=== PATIENT | male | born 1955 | race Caucasian/White ===

== ENCOUNTER 2016-12-05 18:02 | Emergency (ER) | payer OTHER ==
[2016-12-05 18:47] VITALS: BP 164/85; PULSE 56; RESP 18; TEMP 97.5
--- NOTE | 2016-12-05 18:49 | ED ---
Wound/Laceration HPI - General Chief Complaint: Wound/Laceration Stated Complaint: LACERATION THUMB, LEFT HAND Time Seen by Provider: 12/05/16 18:39 Source: patient, RN notes reviewed Mode of arrival: ambulatory Limitations: no limitations - History of Present Illness Initial Comments: Patient is a 61-year-old male with chief complaint of a laceration over his left thumb. Patient reports occurred while he was cutting cauliflower. Patient states that the laceration will not stop bleeding. Patient states that he is right-handed. He denies any other injuries from the cut. Patient states he is up-to-date on tetanus shot. Patient denies any recent fever, chills, shortness of breath, chest pain, back pain, abdominal pain, nausea vomiting, numbness or tingling, dysuria or hematuria, constipation or diarrhea, headaches or visual changes, or any other current symptoms - Related Data Home Medications Medication Instructions Recorded Confirmed Cetirizine HCl 10 mg PO DAILY 08/26/14 12/05/16 Cholecalciferol (Vitamin D3) 10,000 unit PO DAILY 08/26/14 12/05/16 [Vitamin D3] Garlic 1 each PO DAILY 08/26/14 12/05/16 Lisinopril-Hctz 10-12.5 mg 1 tab PO HS 08/26/14 12/05/16 [Zestoretic 10-12.5] [place]-3 Fatty Acids/Fish Oil [Fish 1 tab PO DAILY 08/26/14 12/05/16 Oil 1,000 mg Softgel] Simvastatin [Zocor] 20 mg PO HS 08/26/14 12/05/16 Pantoprazole [Protonix] 40 mg PO DAILY 12/05/16 12/05/16 Allergies Allergy/AdvReac Type Severity Reaction Status Date / Time acetaminophen [From Tavist] Allergy Confusion Verified 12/05/16 18:39 clemastine fumarate Allergy Confusion Verified 12/05/16 18:39 [From Tavist] diphenhydramine HCl Allergy Swelling Verified 12/05/16 18:39 [From Benadryl] hydrocodone Allergy Dyspnea Verified 12/05/16 18:39 pseudoephedrine HCl Allergy Confusion Verified 12/05/16 18:39 [From Tavist] Review of Systems ROS Statement: Those systems with pertinent positive or pertinent negative responses have been documented in the HPI. ROS Other: All systems not noted in ROS Statement are negative. Past Medical History Past Medical History: Atrial Fibrillation, Hypertension History of Any Multi-Drug Resistant Organisms: None Reported Past Surgical History: Cholecystectomy, Orthopedic Surgery Past Psychological History: No Psychological Hx Reported Smoking Status: Never smoker Past Alcohol Use History: None Reported Past Drug Use History: None Reported General Exam - General Exam Comments Initial Comments: Pleasant 61-year-old male. No distress. Limitations: no limitations General appearance: alert, in no apparent distress Head exam: Present: atraumatic, normocephalic, normal inspection Eye exam: Present: normal appearance, PERRL, EOMI. Absent: scleral icterus, conjunctival injection, periorbital swelling ENT exam: Present: normal exam, mucous membranes moist Neck exam: Present: normal inspection. Absent: tenderness, meningismus, lymphadenopathy Respiratory exam: Present: normal lung sounds bilaterally. Absent: respiratory distress, wheezes, rales, rhonchi, stridor Cardiovascular Exam: Present: regular rate, normal rhythm, normal heart sounds. Absent: systolic murmur, diastolic murmur, rubs, gallop, clicks GI/Abdominal exam: Present: soft, normal bowel sounds. Absent: distended, tenderness, guarding, rebound, rigid Extremities exam: Present: normal inspection, full ROM, normal capillary refill. Absent: tenderness, pedal edema, joint swelling, calf tenderness Left Hand Wrist exam: Present: normal inspection, full ROM, laceration (2 cm laceration over the left thumb.) Back exam: Present: normal inspection Neurological exam: Present: alert, oriented X3, CN II-XII intact Psychiatric exam: Present: normal affect, normal mood Skin exam: Present: warm, dry, intact, normal color. Absent: rash Course Vital Signs 12/05/16 18:37 Temperature 97.5 F L Pulse Rate 56 L Respiratory 18 Rate Blood Pressure 164/85 O2 Sat by Pulse 95 Oximetry Procedures - Laceration Laceration #1 Consent Obtained: verbal consent Indication: laceration Site: hand (left thumb) Size (cm): 2 Description: linear Depth: simple, single layer Anesthetic Used: benzocaine 0.25% Anesthesia Technique: local infiltration Amount (mls): 2 Pre-repair: wound explored, irrigated extensively Type of Sutures: nylon Size of Sutures: 6-0 Number of Sutures: 2 Technique: simple, interrupted Patient Tolerated Procedure: well, no complications Medical Decision Making - Medical Decision Making Patient is a 61 year old male with 2cm thumb laceration after cutting it on a kitchen knife. Patient wound was cleaned, and has full range of motion, superficial laceration and bleeding controlled. PAtient wound approximated with 2 sutures. Patient understands treatment plan and return parameter including infection. PAtient understands to have sutures removed. Disposition Clinical Impression: Thumb laceration Disposition: HOME SELF-CARE Condition: Good Instructions: Care For Your Stitches (ED), Laceration (ED) Additional Instructions: Please return to the emergency room in 8-10 days to have sutures removed. Please leave wound covered for the first 24-48 hours and then leave open to air after that time. Please use clean soap and water to clean the suture area to prevent scabbing over the top of your sutures. Please watch for any signs of infection which may include but not limited to increased pain, swelling, redness , fever or chills. Please return to the emergency room if any signs of infection do occur. Please return to the emergency room for any other concerns or complications. Referrals: El Jennings MD [Primary Care Provider] - 1-2 days Time of Disposition: 19:43
== END 2016-12-05 19:50 | disposition home or self-care (01) ==
LOC: EC 18:02
DX: S61.012A Laceration without foreign body of left thumb without damage to nail, initial encounter (principal); I48.91 Unspecified atrial fibrillation; I10 Essential (primary) hypertension; Z79.899 Other long term (current) drug therapy; Z88.8 Allergy status to other drugs, medicaments and biological substances; W26.0XXA Contact with knife, initial encounter; Y92.009 Unspecified place in unspecified non-institutional (private) residence as the place of occurrence of the external cause
CPT/HCPCS: 12001; 99282

== ENCOUNTER 2019-03-25 08:08 | Emergency (ER) | payer OTHER ==
[2019-03-25 08:15] VITALS: RESP 18
[2019-03-25 10:26] LABS: Basophils % (A) 1 %; Eosinophils # (A) 0.1 k/uL (0-0.7); Eosinophils % (A) 2 %; HCT 45.1 % (39.0-53.0); HGB 15.3 gm/dL (13.0-17.5); Lymphocytes # (A) 1.8 k/uL (1.0-4.8); Lymphocytes % (A) 24 %; MCV 82.2 fL (80.0-100.0); Mean Platelet Volume 7.2; Monocytes # (A) 0.4 k/uL (0-1.0); Monocytes % (A) 5 %; Neutrophils # (A) 5.2 k/uL (1.3-7.7); Neutrophils % (A) 67 %; Platelet Count 187 k/uL (150-450); RBC 5.48 m/uL (4.30-5.90); RDW 13.5 % (11.5-15.5); WBC 7.7 k/uL (3.8-10.6)
--- NOTE | 2019-03-25 10:42 | XR ---
EXAMINATION TYPE: XR chest 2V DATE OF EXAM: 03/25/2019 COMPARISON: 12/30/2014 TECHNIQUE: PA and lateral views submitted. HISTORY: Cardiac dysrhythmia FINDINGS: The lungs are clear and there is no pneumothorax, pleural effusion, or focal pneumonia. Atrophic ch anna of the vertebral column. No overt failure. IMPRESSION: 1. No acute process.
[2019-03-25 10:44] LABS: ALT 35 U/L (21-72); AST 28 U/L (17-59); African American GFR (CKD) >90 (>60 ml/min/1.73 sqM); Albumin 4.2 g/dL (3.5-5.0); Alkaline Phosphatase 42 U/L (38-126); Anion Gap 10 mmol/L; Blood Urea Nitrogen 16 mg/dL (9-20); Calcium 9.6 mg/dL (8.4-10.2); Carbon Dioxide 27 mmol/L (22-30); Chloride 105 mmol/L (98-107); Glucose 108 mg/dL (74-99); Potassium 3.9 mmol/L (3.5-5.1); Sodium 142 mmol/L (137-145); Total Bilirubin 0.6 mg/dL (0.2-1.3); Total Protein 6.9 g/dL (6.3-8.2)
[2019-03-25] MEDS ORDERED: SODIUM CHLORIDE 0.9% 1,000 ML IV STA (10:46)
--- NOTE | 2019-03-25 10:48 | ED ---
General Adult HPI - General Chief complaint: Arrhythmia/Palpitations Stated complaint: active A-Fib Time Seen by Provider: 03/25/19 08:18 Source: patient Mode of arrival: ambulatory Limitations: no limitations - History of Present Illness Initial comments: Dictation was produced using [employer] dictation software. please excuse any grammatical, word or spelling errors. Chief Complaint: 63-year-old male with past medical history of A. fib, GERD and dyslipidemia presents with palpitations. History of Present Illness: Sodium 3-year-old male. He was at home is his usual state of health. Patient states that he did feel episode palpitations. Patient does have an apple watched that monitors his heart rate. He did receive in the left from his said he had episode of A. fib. Patient reports that several years ago he was told he had atrial fibrillation. He did state cardiac workup. He is not on any blood thinner medications or any rate controlling medications at this point. He reports that he's been sweating more than usual because of the recent weather changes. Patient states that his episode of short-lived lasting for only seconds.. When he is not having palpitations patient feels normal. He has no complaints. He does not for sure of breath or have any chest pain. The ROS documented in this emergency department record has been reviewed and confirmed by me. Those systems with pertinent positive or negative responses have been documented in the HPI. All other systems are other negative and/or noncontributory. PHYSICAL EXAM: General Impression: Alert and oriented x3, not in acute distress HEENT: Normocephalic atraumatic, extra-ocular movements intact, pupils equal and reactive to light bilaterally, mucous membranes moist. Cardiovascular: Heart regular rate and rhythm, S1&S2 audible, no murmurs, rubs or gallops Chest: Lungs clear to auscultation bilaterally, no rhonchi, no wheeze, no rales Abdomen: Bowel sounds present, abdomen soft, non-tender, non-distended, no organomegaly Musculoskeletal: Pulses present and equal in all extremities, no peripheral edema Motor: no focal deficits noted Neurological: CN II-XII grossly intact, no focal motor or sensory deficits noted Skin: Intact with no visualized rashes Psych: Normal affect and mood ED course:-year-old male presents with clinical presentation consistent with palpitations. EKG performed in the ER showed normal sinus rhythm. With a rate of 73. [place] was placed on the monitor and had a rate of 106. EKG was performed at that time showing atrial fibrillation. Signs upon arrival are within acceptable limits. Patient wears a smart watch that shows his heart rate over the last 72 hours. Patient has not had any episodes of tachycardia about 105 and most of his heart rate is less than 80. She does not any heart rate controlling medications at this time. Patient had one sharp Rx's only A. fib here in emergency department and was caught on EKG. He is given fluids and kept on the monitor with no A. fib. At this point I do not believe patient is a candidate for antiplatelet coagulation medications given that his risk of clot formation is very small. He has not had a tenuous A. fib for more than 48 hours. State he has had multiple minute long episodes occurring maybe once a day as seen on his smart watch. Patient's well-appearing at this time. Laboratory evaluation obtained showing no acute processes. Chest x-rays negative. Patient started on NV metoprolol. He is given prescription. Patient given referral to cardiology. EKG interpretation: Ventricular rate 106, A. fib, QRS 104, QTc 502. No NV prolongation, no QTC prolongation, no ST or T-wave changes noted. . Overall, this EKG is unremarkable - Related Data Home Medications Medication Instructions Recorded Confirmed Cetirizine HCl 10 mg PO HS 08/26/14 03/25/19 Cholecalciferol (Vitamin D3) 10,000 unit PO HS 08/26/14 03/25/19 [Vitamin D3] Garlic 1 tab PO HS 08/26/14 03/25/19 Lisinopril-Hctz 10-12.5 mg 1 tab PO HS 08/26/14 03/25/19 [Zestoretic 10-12.5] [place]-3 Fatty Acids/Fish Oil [Fish 1 tab PO HS 08/26/14 03/25/19 Oil 1,000 mg Softgel] Simvastatin [Zocor] 20 mg PO HS 08/26/14 03/25/19 Pantoprazole [Protonix] 40 mg PO HS 12/05/16 03/25/19 Fluticasone Nasal [place] [Flonase 1 spray EA NOSTRIL HS PRN 03/25/19 03/25/19 Nasal [place]] Multivitamins, Thera [Multivitamin 1 tab PO HS 03/25/19 03/25/19 (formulary)] Previous Rx's Medication Instructions Recorded Metoprolol Succinate (ER) [Toprol 25 mg PO DAILY #12 tab 03/25/19 XL] Allergies Allergy/AdvReac Type Severity Reaction Status Date / Time diphenhydramine HCl Allergy Swelling Verified 03/25/19 08:22 [From Benadryl] hydrocodone Allergy Dyspnea Verified 03/25/19 08:22 acetaminophen [From Tavist] AdvReac Confusion Verified 03/25/19 08:22 clemastine fumarate AdvReac Confusion Verified 03/25/19 08:22 [From Tavist] pseudoephedrine HCl AdvReac Confusion Verified 03/25/19 08:22 [From Tavist] Review of Systems ROS Statement: Those systems with pertinent positive or pertinent negative responses have been documented in the HPI. ROS Other: All systems not noted in ROS Statement are negative. Past Medical History Past Medical History: Atrial Fibrillation, GERD/Reflux, Hyperlipidemia, Hyperten namrata History of Any Multi-Drug Resistant Organisms: None Reported Past Surgical History: Cholecystectomy, Orthopedic Surgery Past Psychological History: No Psychological Hx Reported Smoking Status: Never smoker Past Alcohol Use History: None Reported Past Drug Use History: None Reported General Exam Limitations: no limitations Course Vital Signs 03/25/19 03/25/19 08:11 10:46 Temperature 97.9 F Pulse Rate 92 70 Respiratory 18 18 Rate Blood Pressure 164/100 138/84 O2 Sat by Pulse 97 95 Oximetry Medical Decision Making - Lab Data Result diagrams: 03/25/19 10:00 03/25/19 10:00 Lab Results 03/25/19 03/25/19 03/25/19 Range/Units 10:00 10:00 10:00 WBC 7.7 (3.8-10.6) k/uL RBC 5.48 (4.30-5.90) m/uL Hgb 15.3 (13.0-17.5) gm/dL Hct 45.1 (39.0-53.0) % MCV 82.2 (80.0-100.0) fL MCH 28.0 (25.0-35.0) pg MCHC 34.0 (31.0-37.0) g/dL RDW 13.5 (11.5-15.5) % Plt Count 187 (150-450) k/uL Neutrophils % 67 % Lymphocytes % 24 % Monocytes % 5 % Eosinophils % 2 % Basophils % 1 % Neutrophils # 5.2 (1.3-7.7) k/uL Lymphocytes # 1.8 (1.0-4.8) k/uL Monocytes # 0.4 (0-1.0) k/uL Eosinophils # 0.1 (0-0.7) k/uL Basophils # 0.0 (0-0.2) k/uL PT 9.9 (9.0-12.0) sec INR 0.9 (<1.2) APTT 21.3 L (22.0-30.0) sec Sodium 142 (137-145) mmol/L Potassium 3.9 (3.5-5.1) mmol/L Chloride 105 (98-107) mmol/L Carbon Dioxide 27 (22-30) mmol/L Anion Gap 10 mmol/L BUN 16 (9-20) mg/dL Creatinine 0.95 (0.66-1.25) mg/dL Est GFR (CKD-EPI)AfAm >90 (>60 ml/min/1.73 sqM) Est GFR (CKD-EPI)NonAf 87 (>60 ml/min/1.73 sqM) Glucose 108 H (74-99) mg/dL Calcium 9.6 (8.4-10.2) mg/dL Magnesium 2.0 (1.6-2.3) mg/dL Total Bilirubin 0.6 (0.2-1.3) mg/dL AST 28 (17-59) U/L ALT 35 (21-72) U/L Alkaline Phosphatase 42 (38-126) U/L Troponin I (0.000-0.034) ng/mL Total Protein 6.9 (6.3-8.2) g/dL Albumin 4.2 (3.5-5.0) g/dL TSH 1.920 (0.465-4.680) mIU/L 03/25/19 Range/Units 10:00 WBC (3.8-10.6) k/uL RBC (4.30-5.90) m/uL Hgb (13.0-17.5) gm/dL Hct (39.0-53.0) % MCV (80.0-100.0) fL MCH (25.0-35.0) pg MCHC (31.0-37.0) g/dL RDW (11.5-15.5) % Plt Count (150-450) k/uL Neutrophils % % Lymphocytes % % Monocytes % % Eosinophils % % Basophils % % Neutrophils # (1.3-7.7) k/uL Lymphocytes # (1.0-4.8) k/uL Monocytes # (0-1.0) k/uL Eosinophils # (0-0.7) k/uL Basophils # (0-0.2) k/uL PT (9.0-12.0) sec INR (<1.2) APTT (22.0-30.0) sec Sodium (137-145) mmol/L Potassium (3.5-5.1) mmol/L Chloride (98-107) mmol/L Carbon Dioxide (22-30) mmol/L Anion Gap mmol/L BUN (9-20) mg/dL Creatinine (0.66-1.25) mg/dL Est GFR (CKD-EPI)AfAm (>60 ml/min/1.73 sqM) Est GFR (CKD-EPI)NonAf (>60 ml/min/1.73 sqM) Glucose (74-99) mg/dL Calcium (8.4-10.2) mg/dL Magnesium (1.6-2.3) mg/dL Total Bilirubin (0.2-1.3) mg/dL AST (17-59) U/L ALT (21-72) U/L Alkaline Phosphatase (38-126) U/L Troponin I 0.023 (0.000-0.034) ng/mL Total Protein (6.3-8.2) g/dL Albumin (3.5-5.0) g/dL TSH (0.465-4.680) mIU/L Disposition Clinical Impression: Paroxysmal atrial fibrillation Disposition: HOME SELF-CARE Condition: Good Instructions (If sedation given, give patient instructions): Heart Palpitations (ED) Prescriptions: Metoprolol Succinate (ER) [Toprol XL] 25 mg PO DAILY #12 tab Is patient prescribed a controlled substance at d/c from ED?: No Referrals: El Jennings MD [Primary Care Provider] - 1-2 days Demetrius Meadows MD [STAFF PHYSICIAN] - 1-2 days Time of Disposition: 12:14
[2019-03-25 11:21] LABS: INR 0.9 (<1.2); Prothrombin Time 9.9 sec (9.0-12.0)
[2019-03-25 11:25] LABS: Partial Thromboplastin Time 21.3 sec (22.0-30.0)
[2019-03-25] MEDS ORDERED: METOPROLOL SUCCINATE (ER) 25 MG TAB.ER.24H PO STA (12:11)
[2019-03-25 12:32] VITALS: BP 128/70; PULSE 78; TEMP 98
== END 2019-03-25 12:30 | disposition home or self-care (01) ==
LOC: EC 08:08
DX: I48.0 Paroxysmal atrial fibrillation (principal); K21.9 Gastro-esophageal reflux disease without esophagitis; E78.5 Hyperlipidemia, unspecified; I10 Essential (primary) hypertension; Z79.899 Other long term (current) drug therapy; Z88.5 Allergy status to narcotic agent; Z88.8 Allergy status to other drugs, medicaments and biological substances
CPT/HCPCS: 36415; 71046; 80053; 83735; 84443; 84484; 85025; 85610; 85730; 93005; 96360; 99285

== ENCOUNTER 2019-04-02 06:28 | Day surgery (SDC) | payer OTHER ==
[2019-03-29 08:51] VITALS: BMI 40.6
[2019-04-02] MEDS ORDERED: ATORVASTATIN 80 MG TAB PO STA (06:40)
[2019-04-02] MEDS ORDERED: ALPRAZolam 0.5 MG TAB PO PRN (06:40)
[2019-04-02] MEDS ORDERED: ALPRAZolam 0.25 MG TAB PO PRN (06:40)
[2019-04-02] MEDS ORDERED: NITROGLYCERIN SL TABS 0.4 MG TAB SUBLINGUAL PRN (06:40)
[2019-04-02] MEDS ORDERED: ASPIRIN 325 MG TAB PO STA (06:40)
[2019-04-02] MEDS ORDERED: SODIUM CHLORIDE 0.9% 1,000 ML in EMPTY BAG 1 BAG IV ONE (06:40)
[2019-04-02 07:14] VITALS: PULSE 62; RESP 20; TEMP 98
[2019-04-02] MEDS ORDERED: LIDOCAINE 1% INJ 10MG/ML (20 ML MDV) ONE (07:32)
[2019-04-02] MEDS ORDERED: HEPARIN SODIUM 1,000 UN/ML (10ML VL) ONE (07:32)
[2019-04-02] MEDS ORDERED: VERAPAMIL 2.5 MG/ML 2 ML AMP ONE (07:32)
[2019-04-02] MEDS ORDERED: MIDAZOLAM (PF) 2 MG/2 ML VIAL IVP ONE (07:42)
[2019-04-02] MEDS ORDERED: LIDOCAINE 1% INJ 10MG/ML (20 ML MDV) SQ ONE (07:45)
[2019-04-02] MEDS ORDERED: HEPARIN SODIUM 1,000 UN/ML (10ML VL) IV ONE (07:48)
[2019-04-02] MEDS ORDERED: IOPAMIDOL-370 125ML BTL INJ ONE (07:53)
[2019-04-02] MEDS ORDERED: RX INFO: IV CONTRAST WAS GIVEN 1 EACH MISC MISCELLANE PRN (08:02)
[2019-04-02] MEDS ORDERED: SODIUM CHLORIDE 0.9% 1,000 ML IV SCH (08:15)
[2019-04-02] MEDS ORDERED: ACETAMINOPHEN TAB 325 MG TAB PO STA (09:28)
--- NOTE | 2019-04-02 10:03 | CC ---
CARDIAC CATHETERIZATION REPORT DATE OF SERVICE: 04/02/2019 PERFORMING PHYSICIAN: Demetrius Meadows MD, [facility]. PROCEDURE PERFORMED: 1. Selective right and left coronary angiogram. 2. Left heart catheterization. INDICATION: This is a very pleasant 63-year-old gentleman with hypertension as well as dyslipidemia, as well as paroxysmal atrial fibrillation, who sees Dr. Michel in the office as an outpatient who was experiencing symptoms of feeling weak and tired, as well as intermittent episodes of diaphoresis with exertion. He underwent a cardiac workup including EKG showing ST changes concerning for severe underlying coronary artery disease as well as a 24 hour Holter monitor which revealed ventricular arrhythmia. Because of that, a heart catheterization was advised to rule out severe underlying coronary artery disease. APPROACH: Right radial artery. COMPLICATION: None. LEVEL OF SEDATION: Moderate with sedation length of 13 minutes. PROCEDURE DESCRIPTION: After obtaining an informed consent, the patient was brought to the cardiac cleaning laborer. The right radial artery was cannulated using micropuncture technique, the micropuncture wire passed easily, then I placed a 5-[place] sheath in the right radial artery. After that, I gave the patient 2 mg of verapamil IA and 10,000 units of heparin IV. I did selective right and left coronary angiogram using JR4 and JL3.5 catheters. Left heart catheterization was performed using 5-Icelandic pigtail catheter. The procedure was completed without any complication. SELECTIVE CORONARY ANGIOGRAM: 1. The right coronary artery is a large caliber vessel. It is a dominant vessel. The right coronary artery has mild disease only. 2. The left main is angiographically normal. It bifurcates into left circumflex and left anterior descending artery. 3. The left circumflex is a large caliber vessel. The left circumflex appeared to have mild disease only in the midportion. It gives rise into multiple obtuse marginal branches, they appear to be angiographically normal. Distally, it gives a PDA branch as well which appeared to be angiographically normal. 4. The LAD, the proximal LAD has mild disease only. The mid LAD has mild disease only and gives rise into a large diagonal branch which seems to be angiographically normal. In the proximal portion, it gives rise into the first diagonal branch which appeared to be angiographically normal. HEMODYNAMICS: The left ventricular end-diastolic pressure was about 10 mmHg with mild gradient across the aortic valve. CONCLUSION: 1. Mild nonobstructive coronary artery disease. 2. Normal left ventricular end-diastolic pressure. 3. Mild gradient across the aortic valve. POSTPROCEDURE MANAGEMENT: 1. Aggressive cholesterol control. 2. Risk factors modifications. 3. Follow up with Dr. Michel in the office. AMY / ERICN: [id number] /
[2019-04-02 15:53] VITALS: BP 136/72
== END 2019-04-02 13:15 | disposition home or self-care (01) ==
LOC: CATHCVL 06:28
PROVIDERS: ATTEND Internal Medicine Interventional Cardiology
DX: I48.0 Paroxysmal atrial fibrillation (principal); I49.3 Ventricular premature depolarization; I25.10 Atherosclerotic heart disease of native coronary artery without angina pectoris; I10 Essential (primary) hypertension; E78.5 Hyperlipidemia, unspecified; E78.00 Pure hypercholesterolemia, unspecified; Z82.49 Family history of ischemic heart disease and other diseases of the circulatory system; G47.33 Obstructive sleep apnea (adult) (pediatric); Z99.89 Dependence on other enabling machines and devices; E66.9 Obesity, unspecified; Z68.41 Body mass index [BMI] 40.0-44.9, adult; Z79.899 Other long term (current) drug therapy; Z88.5 Allergy status to narcotic agent; Z88.8 Allergy status to other drugs, medicaments and biological substances
CPT/HCPCS: 93458; C1769; C1894; J2001; J1644; Q9967; J2250

== ENCOUNTER → 2020-10-08 | Outpatient (CLI) | payer BC ==
[2020-10-08 14:56] LABS: Chol/HDL Ratio 3.95; LDL Cholesterol,Calculated 82.2 mg/dL (0.0-131.0); VLDL Calculation 26.8 mg/dL (5.00-40.00)
== END | disposition home or self-care (01) ==
LOC: LABWHC1 08:21
PROVIDERS: ATTEND Nurse Practitioner Adult Health
DX: E78.5 Hyperlipidemia, unspecified (principal)
CPT/HCPCS: 36415; 80061

== ENCOUNTER → 2021-01-27 | Outpatient (CLI) | payer BC ==
--- NOTE | 2021-01-27 10:42 | XR ---
EXAMINATION TYPE: XR chest 2V DATE OF EXAM: 01/27/2021 COMPARISON: 03/25/2019 TECHNIQUE: PA and lateral views submitted. HISTORY: Preop FINDINGS: The lungs are clear and there is no pneumothorax, pleural effusion, or focal pneumonia. Heart size normal. No overt failure. Biapical pleural thickening. IMPRESSION: 1. No acute process.
== END | disposition home or self-care (01) ==
LOC: RADXRMAIN 09:43
PROVIDERS: ATTEND Nurse Practitioner
DX: Z01.818 Encounter for other preprocedural examination (principal)
CPT/HCPCS: 71046

== ENCOUNTER → 2021-01-27 | Outpatient (CLI) | payer BC ==
[2021-01-27 11:59] LABS: Appearance,Urine Clear (Clear); Bilirubin,Urine Negative (Negative); Blood,Urine Negative (Negative); Color,Urine Light Yellow; Glucose,Urine (UA) Negative (Negative); Ketones,Urine Negative (Negative); Leukocyte Esterase,Urine Negative (Negative); Nitrite,Urine Negative (Negative); Protein,Urine Negative (Negative); Specific Gravity,Urine 1.011 (1.001-1.035); Urobilinogen,Urine <2.0 mg/dL (<2.0)
== END | disposition home or self-care (01) ==
LOC: LABPAT 09:41
PROVIDERS: ATTEND Orthopaedic Surgery Sports Medicine
DX: Z01.812 Encounter for preprocedural laboratory examination (principal); M17.12 Unilateral primary osteoarthritis, left knee
CPT/HCPCS: 81003; 87070

== ENCOUNTER 2021-02-25 08:11 | Observation (INO) | payer BC ==
[2021-02-19 13:49] VITALS: BMI 40.6
[2021-02-25 19:38] VITALS: RESP 17
[2021-02-26 08:07] VITALS: BP 124/74; PULSE 75; TEMP 98.8
== END 2021-02-26 13:10 | disposition home health service (06) ==
LOC: OR 08:11 → 4SSUR 13:11 → OR 23:20
PROVIDERS: ADMIT Orthopaedic Surgery Sports Medicine; ATTEND Orthopaedic Surgery Sports Medicine
DX: M17.12 Unilateral primary osteoarthritis, left knee (principal); I10 Essential (primary) hypertension; I48.0 Paroxysmal atrial fibrillation; Z47.2 Encounter for removal of internal fixation device; Z88.5 Allergy status to narcotic agent; E78.5 Hyperlipidemia, unspecified; M25.762 Osteophyte, left knee; K21.9 Gastro-esophageal reflux disease without esophagitis; J30.9 Allergic rhinitis, unspecified; G47.30 Sleep apnea, unspecified; E66.01 Morbid (severe) obesity due to excess calories; Z68.41 Body mass index [BMI] 40.0-44.9, adult; Z79.01 Long term (current) use of anticoagulants; Z79.899 Other long term (current) drug therapy; Z88.8 Allergy status to other drugs, medicaments and biological substances; Z87.81 Personal history of (healed) traumatic fracture; Z90.49 Acquired absence of other specified parts of digestive tract; Z97.3 Presence of spectacles and contact lenses; Z83.3 Family history of diabetes mellitus; Z82.49 Family history of ischemic heart disease and other diseases of the circulatory system
CPT/HCPCS: 27447; 97162; 64999; 64448; 76942; 80053; 83735; 85025; 88300; 73560; 71045; G0378 ×2; C1713; C1776; J2250; J1100; J0690 ×3; J2405; J2001; J3010; J1170 ×3; J2795 ×2; J2704

== ENCOUNTER → 2022-06-13 | Outpatient (CLI) | payer MEDICARE ==
--- NOTE | 2022-06-13 09:39 | US ---
EXAMINATION TYPE: US duplex aorta DATE OF EXAM: 06/13/2022 COMPARISON: NONE CLINICAL HISTORY: Z13.6 SCREENING FOR CARDIOVASCULAR DISORDERS. Family history of aortic aneurysm TECHNIQUE: Multiple sonographic images of the abdominal aorta are obtained. FINDINGS: EXAM MEASUREMENTS: Abdominal Aorta: AP x Width Proximal: 2.4 x 2.1 cm Mid: 2.2 x 2.1 cm Distal: 2.1 x 1.9 cm Bifurcation: NISSA 1.4 x 1.3 cm WILBERTO 1.3 x 1.4 cm MANGLE TENDER CLOTH NOTES: Limited slightly by overlying bowel gas and body habitus IMPRESSION: No ultrasound evidence of abdominal aortic aneurysm.
== END | disposition home or self-care (01) ==
LOC: RADUSWWP 08:46
PROVIDERS: ATTEND Family Medicine
DX: Z13.6 Encounter for screening for cardiovascular disorders (principal)
CPT/HCPCS: 93979

== ENCOUNTER 2022-08-04 06:44 | Day surgery (SDC) | payer BC ==
[2022-08-02 15:37] VITALS: BMI 43.4
--- NOTE | 2022-08-04 05:53 | P.GSHP ---
History of Present Illness H&P Date: 08/04/22 CHIEF COMPLAINT: Colon screen HISTORY OF PRESENT ILLNESS: The patient is a 67-year-old male who presents for colon screen. Lower endoscopy was offered for further evaluation and management. PAST MEDICAL HISTORY: Please see list. PAST SURGICAL HISTORY: Please see list. MEDICATIONS: Please see list. ALLERGIES: Please see list. SOCIAL HISTORY: No illicit drug use FAMILY HISTORY: No reports of Crohn disease or ulcerative colitis. REVIEW OF ORGAN SYSTEMS: CONSTITUTIONAL: No reports of fevers or chills. PHYSICAL EXAM: VITAL SIGNS: Stable GENERAL: Well-developed pleasant in no acute distress. HEENT: No scleral icterus. Extraocular movements grossly intact. Moist buccal mucosa. NECK: Supple without lymphadenopathy. CHEST: Unlabored respirations. Equal bilateral excursions. CARDIOVASCULAR: Regular rate and rhythm. Distal 2+ pulses. ABDOMEN: Soft, nontender, nondistended. MUSCULOSKELETAL: No clubbing, cyanosis, or edema. ASSESSMENT: 1. Colon screen. PLAN: 1. Recommend proceeding with a lower endoscopy Past Medical History Past Medical History: Atrial Fibrillation, GERD/Reflux, Hyperlipidemia, Hypertension, Sleep Apnea/CPAP/BIPAP Additional Past Medical History / Comment(s): Uses CPAP. History of Any Multi-Drug Resistant Organisms: None Reported Past Surgical History: Cholecystectomy, Joint Replacement, Orthopedic Surgery Additional Past Surgical History / Comment(s): Repair of tibial plateau fracture left knee, then total left knee replacement, vasectomy. Past Anesthesia/Blood Transfusion Reactions: Motion Sickness Past Psychological History: No Psychological Hx Reported Smoking Status: Never smoker Past Alcohol Use History: None Reported Past Drug Use History: None Reported - Past Family History Mother Family Medical History: No Reported History Father Sister(s) Family Medical History: Cancer Additional Family Medical History / Comment(s): Multiple myeloma. Sister(s) Family Medical History: Cancer Additional Family Medical History / Comment(s): Breast cancer. Brother(s) Family Medical History: Cancer Additional Family Medical History / Comment(s): Prostate cancer. Medications and Allergies Home Medications Medication Instructions Recorded Confirmed Type Garlic 2 tab PO DAILY 08/26/14 08/02/22 History Pantoprazole [Protonix] 40 mg PO DAILY 12/05/16 08/02/22 History Multivitamins, Thera [Multivitamin 1 tab PO HS 03/25/19 08/02/22 History (formulary)] Atorvastatin [Lipitor] 40 mg PO DAILY 02/19/21 08/02/22 History Lisinopril-Hctz 20-25 mg 1 tab PO DAILY 02/19/21 08/02/22 History [Zestoretic 20-25] Rivaroxaban [Xarelto] 20 mg PO DAILY #0 02/26/21 08/02/22 Rx Cetirizine HCl [Zyrtec] 10 mg PO DAILY 08/02/22 08/02/22 History Cholecalciferol [Vitamin D3 (25 25 mcg PO DAILY 08/02/22 08/02/22 History Mcg = 1000 Iu)] Fluticasone Nasal [place] [Flonase 1 spray EA NOSTRIL DAILY 08/02/22 08/02/22 History Nasal [place]] Allergies Allergy/AdvReac Type Severity Reaction Status Date / Time diphenhydramine HCl Allergy "Seizure Verified 08/02/22 15:20 [From Benadryl] like activity" hydrocodone Allergy Nausea Verified 08/02/22 15:20 clemastine fumarate AdvReac Confusion Verified 08/02/22 15:20 [From Tavist] pseudoephedrine HCl AdvReac Confusion Verified 08/02/22 15:20 [From Tavist]
[2022-08-04] MEDS ORDERED: PROPOFOL 10 MG/ML 20 ML VIAL IV ONE (07:07)
[2022-08-04] MEDS: LACTATED RINGERS 1,000 ML IV ONE ×2 (07:07→07:14)
[2022-08-04] MEDS ORDERED: LIDOCAINE 2% INJ 20 MG/ML (2 ML VIAL) ONE (07:07)
[2022-08-04] MEDS ORDERED: DEXAMETHASONE SOD PHOSPHATE 4 MG/ML 1 ML VIAL IV ONE (07:15)
[2022-08-04] MEDS ORDERED: fentaNYL (PF) 50 MCG/ML 2 ML AMP IV PRN (07:15)
[2022-08-04] MEDS ORDERED: LACTATED RINGERS 1,000 ML IV SCH (07:15)
[2022-08-04] MEDS ORDERED: ONDANSETRON 4 MG/2 ML VIAL IVP ONE (07:15)
[2022-08-04 07:20] VITALS: TEMP 98
--- NOTE | 2022-08-04 07:30 | P.PCN ---
Date of Procedure: 08/04/22 Description of Procedure: PREOPERATIVE DIAGNOSIS: Personal history of colon polyps Colonoscopy screening POSTOPERATIVE DIAGNOSIS: Tubular adenoma transverse colon Sigmoid diverticulosis Pandiverticulosis Internal hemorrhoids, grade 2 OPERATION: Colonoscopy to the ileocecal valve and appendiceal orifice, cecum Colonoscopy with hot snare polypectomy SURGEON: Millie Flaherty MD. ANESTHESIA: MAC. INDICATIONS: The patient is an 67-year-old male who presents personal history of colon polyps. Last colonoscopy 5 years. Benefits and risks were described and informed consent was obtained. DESCRIPTION OF PROCEDURE: The patient had undergone Sutab prep. The patient had been brought into the operating room and laid in the left lateral decubitus position. After adequate intravenous sedation, the rectum was examined with 2% lidocaine jelly. The prostate was unremarkable. External hemorrhoids were encountered. The rectal tone was within normal limits. No lesions were palpated in the rectal vault. An Olympus colonoscope was advanced until the cecum, ileocecal valve and appendiceal orifice were clearly viewed. The prep was excellent. Sigmoid diverticulosis with pandiverticulosis were encountered. Colonic polyps were found and removed. No evidence of focal colitis was found. Retroflexion of the scope demonstrated grade 2 internal hemorrhoids without active bleeding or inflammation. The colon was desufflated. The patient had tolerated the procedure well. Withdrawal time was over 6 minutes. FINDINGS: Aronchick preparation quality scale 1 (1-5) Internal hemorrhoids, grade 2 External hemorrhoids, grade 2 No arteriovenous malformations. Sigmoid diverticulosis with pandiverticulosis, large Removal of 1 polyps: - Snare polypectomy at mid transverse colon, 6 mm tubulovillous adenoma polyp. No focal colitis. RECOMMENDATIONS: Repeat colonoscopy 3 years, 2024 Plan - Discharge Summary Discharge Rx Participant: No New Discharge Prescriptions: Continue Garlic 2 tab PO DAILY Pantoprazole [Protonix] 40 mg PO DAILY Multivitamins, Thera [Multivitamin (formulary)] 1 tab PO HS Lisinopril-Hctz 20-25 mg [Zestoretic 20-25] 1 tab PO DAILY Rivaroxaban [Xarelto] 20 mg PO DAILY #0 Fluticasone Nasal [place] [Flonase Nasal [place]] 1 spray EA NOSTRIL DAILY Cholecalciferol [Vitamin D3 (25 Mcg = 1000 Iu)] 25 mcg PO DAILY Atorvastatin [Lipitor] 40 mg PO DAILY Cetirizine HCl [Zyrtec] 10 mg PO DAILY Discharge Medication List Garlic 2 tab PO DAILY 08/26/14 [History] Pantoprazole [Protonix] 40 mg PO DAILY 12/05/16 [History] Multivitamins, Thera [Multivitamin (formulary)] 1 tab PO HS 03/25/19 [History] Atorvastatin [Lipitor] 40 mg PO DAILY 02/19/21 [History] Lisinopril-Hctz 20-25 mg [Zestoretic 20-25] 1 tab PO DAILY 02/19/21 [History] Rivaroxaban [Xarelto] 20 mg PO DAILY #0 02/26/21 [Rx] Cetirizine HCl [Zyrtec] 10 mg PO DAILY 08/02/22 [History] Cholecalciferol [Vitamin D3 (25 Mcg = 1000 Iu)] 25 mcg PO DAILY 08/02/22 [History] Fluticasone Nasal [place] [Flonase Nasal [place]] 1 spray EA NOSTRIL DAILY 08/02/22 [History] Follow up Appointment(s)/Referral(s): Millie Flaherty MD [STAFF PHYSICIAN] - As Needed Patient Instructions/Handouts: Diverticulosis Diet (GEN), Diverticulosis (DC), Colorectal Polyps (GEN) Activity/Diet/Wound Care/Special Instructions: Repeat colonoscopy 3 years, 2024 Discharge Disposition: HOME SELF-CARE
[2022-08-04 07:31] VITALS: RESP 16
[2022-08-04 07:44] VITALS: BP 105/57; PULSE 69
== END 2022-08-04 08:24 | disposition home or self-care (01) ==
LOC: ORWHC2ENDO 06:44
PROVIDERS: ATTEND Surgery Plastic and Reconstructive Surgery
DX: Z12.11 Encounter for screening for malignant neoplasm of colon (principal); D12.3 Benign neoplasm of transverse colon; K57.30 Diverticulosis of large intestine without perforation or abscess without bleeding; K64.1 Second degree hemorrhoids; K64.4 Residual hemorrhoidal skin tags; E78.5 Hyperlipidemia, unspecified; G47.30 Sleep apnea, unspecified; I10 Essential (primary) hypertension; I48.91 Unspecified atrial fibrillation; K21.9 Gastro-esophageal reflux disease without esophagitis; Z79.01 Long term (current) use of anticoagulants; Z79.899 Other long term (current) drug therapy; Z80.3 Family history of malignant neoplasm of breast; Z87.19 Personal history of other diseases of the digestive system; Z88.5 Allergy status to narcotic agent; Z88.8 Allergy status to other drugs, medicaments and biological substances; Z90.49 Acquired absence of other specified parts of digestive tract; Z96.652 Presence of left artificial knee joint; Z79.02 Long term (current) use of antithrombotics/antiplatelets
CPT/HCPCS: 88305; 45385; J2704; J2001

== ENCOUNTER → 2022-11-28 | Outpatient (CLI) | payer MEDICARE ==
--- NOTE | 2022-11-28 15:08 | XR ---
"EXAMINATION TYPE: XR abdomen acute w cxr DATE OF EXAM: 11/28/2022 COMPARISON: NONE HISTORY: Pain TECHNIQUE: Supine, upright, and left side down lateral decubitus views of the abdomen are obtained. FINDINGS: Lungs are clear. Heart size normal. 6 mm nodule left lung base. No pneumothorax. Hypertrophic changes of the spine. No overt failure. Bowel gas pattern nonspecific with multiple air fluid levels. No suspicious calcifications. 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 IMPRESSION: 1. Nonspecific abdomen with air-fluid levels associated with an ileus or enteritis. Partial obstructi ve pattern Less likely correlate clinically. 2. There is a 6mm nodule left lung base A Yellow level critical message alert has been initiated for El Jennings MD via the [employer] 0 | Critical Results System on 11/28/2022 3:05 PM. This message alert has been sent to El Jennings MD via the preferences provided by the clinician for the receipt of Radiology Critical Findings. Mess age ID [id number]."
[2022-11-29 05:16] LABS: Basophils # (A) 0.03 X 10*3/uL (0.00-0.10); Basophils % (A) 0.3 %; Eosinophils # (A) 0.28 X 10*3/uL (0.04-0.35); Eosinophils % (A) 2.5 %; HCT 46.7 % (39.6-50.0); HGB 15.5 g/dL (13.0-17.0); Immature Grans, Automated 0.4 %; Lymphocytes # (A) 2.58 X 10*3/uL (0.90-5.00); Lymphocytes % (A) 23.2 %; MCH 28.3 pg (27.0-32.0); MCHC 33.2 g/dL (32.0-37.0); MCV 85.4 fL (80.0-97.0); Monocytes # (A) 0.93 X 10*3/uL (0.20-1.00); Monocytes % (A) 8.4 %; NRBC Per 100 WBC 0 /100 WBCS (0.0-0.0); Neutrophils # (A) 7.26 X 10*3/uL (1.80-7.70); Neutrophils % (A) 65.2 %; Platelet Count 213 X 10*3/uL (140-440); RBC 5.47 X 10*6/uL (4.40-5.60); RDW 13.4 % (11.5-14.5); WBC 11.12 X 10*3/uL (4.50-10.00)
[2022-11-29 05:46] LABS: African American GFR (CKD) 91.1 (60.0-200.0); Albumin 4.2 g/dL (3.8-4.9); Albumin/Globulin Ratio 1.75 (1.60-3.17); Anion Gap 11.7 mmol/L (10.00-18.00); Calcium 9.2 mg/dL (8.7-10.3); Carbon Dioxide 27.3 mmol/L (20.0-27.5); Globulin 2.4 g/dL (1.6-3.3); Non-African American GFR(CKD) 78.6 (60.0-200.0); Potassium 3.4 mmol/L (3.5-5.5); Total Bilirubin 0.9 mg/dL (0.30-1.20); Total Protein 6.6 g/dL (6.2-8.2)
== END | disposition home or self-care (01) ==
LOC: RADXRMAIN 14:45
PROVIDERS: ATTEND Family Medicine
DX: K57.32 Diverticulitis of large intestine without perforation or abscess without bleeding (principal); R91.1 Solitary pulmonary nodule
CPT/HCPCS: 74022; 80053; 85025

== ENCOUNTER → 2023-04-25 | Outpatient (CLI) | payer MEDICARE ==
[2023-04-25 15:47] LABS: ALT 27 U/L (10-49); AST 22 U/L (14-35); Albumin 4.3 d/dL (3.8-4.9); Albumin/Globulin Ratio 1.95 Ratio (1.60-3.17); Alkaline Phosphatase 67 U/L (41-126); BUN/Creat Ratio 11.64 Ratio (12.00-20.00); Blood Urea Nitrogen 12.8 mg/dL (9.0-27.0); Calcium 9.5 mg/dL (8.7-10.3); Chloride 103 mmol/L (96-109); Chol/HDL Ratio 4.86 Ratio; Globulin 2.2 d/dL (1.6-3.3); Glucose 103 mg/dL (70-110); LDL Cholesterol,Calculated 84.5 mg/dL (0.0-131.0); Potassium 4.7 mmol/L (3.5-5.5); Sodium 142 mmol/L (135-145); Total Bilirubin 0.6 mg/dL (0.3-1.2); Total Protein 6.5 d/dL (6.2-8.2)
[2023-04-25 16:03] LABS: Basophils # (A) 0.06 X 10*3/uL (0.00-0.10); Basophils % (A) 0.7 %; Eosinophils # (A) 0.21 X 10*3/uL (0.04-0.35); Eosinophils % (A) 2.4 %; HCT 45.2 % (39.6-50.0); HGB 15.1 d/dL (13.0-17.0); Lymphocytes # (A) 2.36 X 10*3/uL (0.90-5.00); Lymphocytes % (A) 26.7 %; MCH 28.7 pg (27.0-32.0); MCHC 33.4 d/dL (32.0-37.0); MCV 85.8 FL (80.0-97.0); Mean Platelet Volume 10.1 FL (9.5-12.2); Monocytes # (A) 0.61 X 10*3/uL (0.20-1.00); Monocytes % (A) 6.9 %; NRBC Per 100 WBC 0 X 10*3/uL (0.00-0.01); Neutrophils # (A) 5.55 X 10*3/uL (1.80-7.70); Neutrophils % (A) 62.8 %; Platelet Count 190 X 10*3/uL (140-440); RBC 5.27 X 10*6/uL (4.40-5.60); RDW 13.5 % (11.5-14.5); WBC 8.83 X 10*3/uL (4.50-10.00)
[2023-04-25 18:23] LABS: HIV 2 AB Non-Reactive (Non-Reactive); HIV AB P24 Non-Reactive (Non-Reactive); HIV P24 AG Non-Reactive (Non-Reactive)
== END | disposition home or self-care (01) ==
LOC: LABWHC1 08:41
PROVIDERS: ATTEND Family Medicine
DX: Z11.4 Encounter for screening for human immunodeficiency virus [HIV] (principal); E78.5 Hyperlipidemia, unspecified
CPT/HCPCS: 36415; 80053; 80061; 85025; 87390

== ENCOUNTER 2023-08-22 11:42 | Emergency (ER) | payer MEDICARE ==
--- NOTE | 2023-08-22 11:46 | ED ---
Wound/Laceration HPI - General Source: patient, RN notes reviewed <Beulah Falcon - Last Filed: 08/22/23 11:45> - General Source: patient, RN notes reviewed Mode of arrival: ambulatory Limitations: no limitations <Ford Madison - Last Filed: 08/22/23 16:05> - General Stated Complaint: L Facial Lac, R Thumb Lac Time Seen by Provider: 08/22/23 11:45 - History of Present Illness Initial Comments: Patient is a 68-year-old male presented ER with chief complaint of a face and t humb laceration. Patient states he was working with wood and it kicked back. Patient's tetanus status is unknown. Patient denies any other injuries. Patient is currently taking blood thinners. (Beulah Falcon) - Related Data Home Medications Medication Instructions Recorded Confirmed Garlic 2 tab PO DAILY 08/26/14 08/04/22 Pantoprazole [Protonix] 40 mg PO DAILY 12/05/16 08/04/22 Multivitamins, Thera [Multivitamin 1 tab PO HS 03/25/19 08/04/22 (formulary)] Atorvastatin [Lipitor] 40 mg PO DAILY 02/19/21 08/04/22 Lisinopril-Hctz 20-25 mg 1 tab PO DAILY 02/19/21 08/04/22 [Zestoretic 20-25] Cetirizine HCl [Zyrtec] 10 mg PO DAILY 08/02/22 08/04/22 Cholecalciferol [Vitamin D3 (25 25 mcg PO DAILY 08/02/22 08/04/22 Mcg = 1000 Iu)] Fluticasone Nasal [place] [Flonase 1 spray EA NOSTRIL DAILY 08/02/22 08/04/22 Nasal [place]] Previous Rx's Medication Instructions Recorded Rivaroxaban [Xarelto] 20 mg PO DAILY #0 02/26/21 Amoxic-Pot Clav 875-125Mg 1 tab PO Q12HR #10 tab 08/22/23 [Augmentin 875-125] Allergies Allergy/AdvReac Type Severity Reaction Status Date / Time diphenhydramine HCl Allergy "Seizure Verified 08/22/23 12:42 [From Benadryl] like activity" hydrocodone Allergy Nausea Verified 08/22/23 12:42 clemastine fumarate AdvReac Confusion Verified 08/22/23 12:42 [From Tavist] pseudoephedrine HCl AdvReac Confusion Verified 08/22/23 12:42 [From Tavist] Review of Systems ROS Other: All systems not noted in ROS Statement are negative. <Beulah Falcon - Last Filed: 08/22/23 11:45> ROS Other: All systems not noted in ROS Statement are negative. <Ford Madison - Last Filed: 08/22/23 16:05> ROS Statement: Those systems with pertinent positive or pertinent negative responses have been documented in the HPI. Past Medical History Past Medical History: Atrial Fibrillation, GERD/Reflux, Hyperlipidemia, Hypertension, Sleep Apnea/CPAP/BIPAP Additional Past Medical History / Comment(s): uses CPAP, recently in [place] w/palpitations-his Apple watch said was a-fib, had episode several years ago History of Any Multi-Drug Resistant Organisms: None Reported Past Surgical History: Cholecystectomy, Orthopedic Surgery Additional Past Surgical History / Comment(s): repair of tibial plateau fx left knee. Vasectomy. left TKR Past Anesthesia/Blood Transfusion Reactions: Motion Sickness Past Psychological History: No Psychological Hx Reported Smoking Status: Never smoker Past Alcohol Use History: None Reported Past Drug Use History: None Reported - Past Family History Mother Family Medical History: No Reported History Father Sister(s) Family Medical History: Cancer Additional Family Medical History / Comment(s): Multiple myeloma. Sister(s) Family Medical History: Cancer Additional Family Medical History / Comment(s): Breast cancer. Brother(s) Family Medical History: Cancer Additional Family Medical History / Comment(s): Prostate cancer. <Beulah Falcon - Last Filed: 08/22/23 11:45> General Exam <Beulah Falcon - Last Filed: 08/22/23 11:45> General appearance: alert, in no apparent distress Head exam: Present: atraumatic, normocephalic, normal inspection Eye exam: Present: normal appearance, PERRL, EOMI. Absent: scleral icterus, conjunctival injection, periorbital swelling ENT exam: Present: normal oropharynx, mucous membranes moist, other (3 cm left cheek laceration). Absent: normal exam Neck exam: Present: normal inspection, full ROM. Absent: tenderness, meningismus, lymphadenopathy Respiratory exam: Present: normal lung sounds bilaterally. Absent: respiratory distress, wheezes, rales, rhonchi, stridor Cardiovascular Exam: Present: regular rate, normal rhythm, normal heart sounds. Absent: systolic murmur, diastolic murmur, rubs, gallop, clicks Extremities exam: Present: other (Right thumb there is abrasion, skin tear at the MCP region, there is some tenderness of the distal portion with ecchymosis) Neurological exam: Present: alert Skin exam: Present: warm, dry, intact, normal color. Absent: rash <Ford Madison - Last Filed: 08/22/23 16:05> - General Exam Comments Initial Comments: Visual Physical Exam Vital signs reviewed General: Well-appearing, nontoxic, no acute distress. Head: Normocephalic, atraumatic Eyes: PERRLA, EOMI ENT: Airway patent Chest: Nonlabored breathing Skin: Laceration to left cheek. Laceration to right thumb. Mild active bleeding normal skin tone Neuro: Alert and oriented 3 Musculoskeletal: No gross abnormalities (Beulah Falcon) Course Vital Signs 08/22/23 08/22/23 12:38 14:29 Temperature 97.8 F 98.6 F Pulse Rate 75 70 Respiratory 18 16 Rate Blood Pressure 178/100 178/94 O2 Sat by Pulse 94 L 98 Oximetry Procedures - Laceration Laceration #1 Consent Obtained: verbal consent Indication: laceration Site: face Size (cm): 3 Description: linear, irregular Depth: simple, single layer Anesthesia Technique: local infiltration Amount (mls): 4 Pre-repair: wound explored, irrigated extensively, deep structures intact Type of Sutures: nylon Size of Sutures: 6-0 Number of Sutures: 4 Technique: simple, interrupted Patient Tolerated Procedure: well, no complications <Ford Madison - Last Filed: 08/22/23 16:05> Medical Decision Making <Beulah Falcon - Last Filed: 08/22/23 11:45> <Ford Madison - Last Filed: 08/22/23 16:05> - Medical Decision Making I performed the quick note portion of the exam. Electronically signed by Beulah Falcon PA-C (Beulah Falcon) Was pt. sent in by a medical professional or institution (RE[facility] Baca, PHOTOLITH OPERATOR, urgent care, hospital, or assisted...) When possible be specific @ -No Did you speak to anyone other than the patient for history (EMS, parent, family, police, friend...)? What history was obtained from this source @ -No Did you review nursing and triage notes (agree or disagree)? Why? @ -I reviewed and agree with nursing and triage notes Were old charts reviewed (outside hosp., previous admission, EMS record, old EKG, old radiological studies, urgent care reports/EKG's, assisted records)? Report findings @ -No old charts were reviewed Differential Diagnosis (chest pain, altered mental status, abdominal pain women, abdominal pain men, vaginal bleeding, weakness, fever, dyspnea, syncope, headache, dizziness, GI bleed, back pain, seizure, CVA, palpatations, mental health, musculoskeletal)? @ -Laceration, facial trauma, thumb fracture, thumb laceration EKG interpreted by me (3pts min.). @ -None X-rays interpreted by me (1pt min.). @ -X-ray facial bones no acute abnormality, x-ray right thumb no acute fracture CT interpreted by me (1pt min.). @ -None done U/S interpreted by me (1pt. min.). @ -None done What testing was considered but not performed or refused? (CT, X-rays, U/S, labs)? Why? @ -None What meds were considered but not given or refused? Why? @ -None Did you discuss the management of the patient with other professionals (professionals i.e. [facility] Baca, PHOTOLITH OPERATOR, lab, RT, psych nurse, social worker masters, bar captain, teacher, fisheries enforcement officer, telehealth case manager)? Give summary @ -No Was smoking cessation discussed for >3mins.? @ -No Was critical care preformed (if so, how long)? @ -No Were there social determinants of health that impacted care today? How? (Homelessness, low income, unemployed, alcoholism, drug addiction, transportation, low edu. Level, literacy, decrease access to med. care, custodial, rehab)? @ -No Was there de-escalation of care discussed even if they declined (Discuss DNR or withdrawal of care, Hospice)? DNR status @ -No What co-morbidities impacted this encounter? (DM, HTN, Smoking, COPD, CAD, Cancer, CVA, ARF, Chemo, Hep., AIDS, mental health diagnosis, sleep apnea, morbid obesity)? @ -None Was patient admitted / discharged? Hospital course, mention meds given and route, prescriptions, significant lab abnormalities, going to OR and other pertinent info. @ -Discharge patient's wounds were cleaned up, sutures applied to the face, right thumb laceration was superficial and not requiring closure bacitracin was applied patient's tetanus is updated. X-rays were negative. Patient was discharged on Augmentin secondary to wound caused by wood. Undiagnosed new problem with uncertain prognosis? @ -No Drug Therapy requiring intensive monitoring for toxicity (Heparin, Nitro, Insulin, Cardizem)? @ -No Were any procedures done? @ -No Diagnosis/symptom? @ -Facial laceration, facial contusion, right thumb abrasion, right thumb contusion Acute, or Chronic, or Acute on Chronic? @ -Acute Uncomplicated (without systemic symptoms) or Complicated (systemic symptoms)? @ -Uncomplicated Side effects of treatment? @ -No Exacerbation, Progression, or Severe Exacerbation? @ -No Poses a threat to life or bodily function? How? (Chest pain, USA, PA, pneumonia, PE, COPD, DKA, ARF, appy, cholecystitis, CVA, Diverticulitis, Homicidal, Suicidal, threat to staff... and all critical care pts) @ -No (Ford Madison) Disposition <Beulah Falcon - Last Filed: 08/22/23 11:45> Is patient prescribed a controlled substance at d/c from ED?: No Time of Disposition: 14:08 <Ford Madison - Last Filed: 08/22/23 16:05> Clinical Impression: Laceration of face, Thumb contusion, Abrasion of thumb Disposition: HOME SELF-CARE Condition: Stable Instructions (If sedation given, give patient instructions): Care For Your Stitches (ED), Laceration (ED) Additional Instructions: Have sutures removed in 7-10 days.Please return to the Emergency Department if symptoms worsen or any other concerns. Prescriptions: Amoxic-Pot Clav 875-125Mg [Augmentin 875-125] 1 tab PO Q12HR #10 tab Referrals: El Jennings MD [Primary Care Provider] - 1-2 days
[2023-08-22] MEDS ORDERED: DIPH,PERTUS(ACELL)TETVAC-LF 0.5 ML VIAL IM ONE (12:06)
[2023-08-22] MEDS ORDERED: LIDOCAINE 1% INJ 10MG/ML (20 ML MDV) SQ ONE ×2 (12:07→12:47)
[2023-08-22] MEDS ORDERED: BACITRACIN OINT 1 EACH PACKET TOPICAL ONE (12:59)
--- NOTE | 2023-08-22 13:49 | XR ---
EXAMINATION TYPE: XR facial bones complete DATE OF EXAM: 08/22/2023 1:42 PM CLINICAL INDICATION:Male, 68 years old with history of trauma left; [facility] COMPARISON: None TECHNIQUE: Multiple views of the facial bones. Frontal, lateral and tilted frontal views. FINDINGS: There is no evidence of acute fracture or dislocation. The soft tissues are within normal limits. N o radiopaque foreign body visualized. No radiopaque foreign bodies. IMPRESSION: Normal facial bones radiographs.
--- NOTE | 2023-08-22 13:49 | XR ---
EXAMINATION TYPE: XR finger RT DATE OF EXAM: 08/22/2023 1:42 PM CLINICAL INDICATION:Male, 68 years old with history of trauma; [facility] COMPARISON: None TECHNIQUE: XR finger RT Frontal, lateral and oblique views were obtained. FINDINGS: Normal alignment of the visualized joints. No acute osseous pathology is identified. Sma ll osseous body near the distal interphalangeal joint of the first digit appears chronic. There is so ft tissue swelling around the metacarpal phalangeal joint of the first digit. IMPRESSION: Soft tissue swelling without evidence of acute fracture.
[2023-08-22 14:37] VITALS: BP 178/94; PULSE 70; RESP 16; TEMP 98.6
== END 2023-08-22 14:41 | disposition home or self-care (01) ==
LOC: EC 11:42
DX: S01.412A Laceration without foreign body of left cheek and temporomandibular area, initial encounter (principal); S61.011A Laceration without foreign body of right thumb without damage to nail, initial encounter; E78.5 Hyperlipidemia, unspecified; I10 Essential (primary) hypertension; I48.91 Unspecified atrial fibrillation; K21.9 Gastro-esophageal reflux disease without esophagitis; G47.30 Sleep apnea, unspecified; Z23 Encounter for immunization; Z79.899 Other long term (current) drug therapy; Z88.5 Allergy status to narcotic agent; Z88.8 Allergy status to other drugs, medicaments and biological substances; W50.1XXA Accidental kick by another person, initial encounter; Y99.0 Civilian activity done for income or pay
CPT/HCPCS: 70150; 73140; 90715; 12013; 99282; 90471; J2001

== ENCOUNTER 2024-06-18 04:20 | Emergency (ER) | payer MEDICARE ==
[2024-06-18 04:51] VITALS: RESP 18
[2024-06-18 05:10] LABS: Basophils # (A) 0.1 k/uL (0-0.2); Basophils % (A) 1 %; Eosinophils # (A) 0.3 k/uL (0-0.7); Eosinophils % (A) 3 %; HCT 45.2 % (39.0-53.0); HGB 15.8 gm/dL (13.0-17.5); Lymphocytes # (A) 3.3 k/uL (1.0-4.8); Lymphocytes % (A) 34 %; MCH 29.3 pg (25.0-35.0); MCV 83.9 fL (80.0-100.0); Mean Platelet Volume 7.7; Monocytes # (A) 0.5 k/uL (0-1.0); Monocytes % (A) 5 %; Neutrophils # (A) 5.4 k/uL (1.3-7.7); Neutrophils % (A) 56 %; Platelet Count 200 k/uL (150-450); RBC 5.39 m/uL (4.30-5.90); WBC 9.7 k/uL (3.8-10.6)
--- NOTE | 2024-06-18 05:19 | XR ---
EXAMINATION TYPE: XR chest 2V DATE OF EXAM: 06/18/2024 COMPARISON: Chest x-ray February 26, 2021 HISTORY: Dysrhythmia TECHNIQUE: Frontal and lateral views of the chest are obtained. FINDINGS: There is no focal air space opacity, pleural effusion, or pneumothorax seen. The cardiac silhouette size remains within normal limits. The osseous structures are intact. IMPRESSION: No acute process. [facility], , 06/18/2024 5:16 AM
[2024-06-18 05:28] LABS: ALT 28 U/L (4-49); AST 28 U/L (17-59); African American GFR (CKD) >90 (>60 ml/min/1.73 sqM); Alkaline Phosphatase 80 U/L (38-126); Anion Gap 9 mmol/L; Blood Urea Nitrogen 15 mg/dL (9-20); Calcium 9.1 mg/dL (8.4-10.2); Carbon Dioxide 24 mmol/L (22-30); Chloride 102 mmol/L (98-107); Glucose 123 mg/dL (74-99); Magnesium 1.8 mg/dL (1.6-2.3); Non-African American GFR(CKD) 90 (>60 ml/min/1.73 sqM); Potassium 3.8 mmol/L (3.5-5.1); Sodium 135 mmol/L (137-145); Total Bilirubin 0.6 mg/dL (0.2-1.3); Total Protein 6.7 g/dL (6.3-8.2)
--- NOTE | 2024-06-18 05:28 | ED ---
Arrhythmia/Palpitations HPI - General Chief Complaint: Arrhythmia/Palpitations Stated Complaint: Afib via Watch Time Seen by Provider: 06/18/24 04:33 Source: patient Mode of arrival: ambulatory Limitations: no limitations - History of Present Illness MD Complaint: rapid heart beat Onset/Timin -: hour(s) Context: awoke with symptoms Arrhythmia History: atrial fibrillation Associated Symptoms: diaphoresis - Related Data Home Medications Medication Instructions Recorded Confirmed Garlic 2 tab PO DAILY 08/26/14 08/04/22 Pantoprazole [Protonix] 40 mg PO DAILY 12/05/16 08/04/22 Multivitamins, Thera [Multivitamin 1 tab PO HS 03/25/19 08/04/22 (formulary)] Atorvastatin [Lipitor] 40 mg PO DAILY 02/19/21 08/04/22 Lisinopril-Hctz 20-25 mg 1 tab PO DAILY 02/19/21 08/04/22 [Zestoretic 20-25] Cetirizine HCl [Zyrtec] 10 mg PO DAILY 08/02/22 08/04/22 Cholecalciferol [Vitamin D3 (25 25 mcg PO DAILY 08/02/22 08/04/22 Mcg = 1000 Iu)] Fluticasone Nasal [place] [Flonase 1 spray EA NOSTRIL DAILY 08/02/22 08/04/22 Nasal [place]] Previous Rx's Medication Instructions Recorded Rivaroxaban [Xarelto] 20 mg PO DAILY #0 02/26/21 Amoxic-Pot Clav 875-125Mg 1 tab PO Q12HR #10 tab 08/22/23 [Augmentin 875-125] Allergies Allergy/AdvReac Type Severity Reaction Status Date / Time diphenhydramine HCl Allergy "Seizure Verified 06/18/24 04:30 [From Benadryl] like activity" hydrocodone Allergy Nausea Verified 06/18/24 04:30 clemastine fumarate AdvReac Confusion Verified 06/18/24 04:30 [From Tavist] pseudoephedrine HCl AdvReac Confusion Verified 06/18/24 04:30 [From Tavist] Review of Systems ROS Statement: Those systems with pertinent positive or pertinent negative responses have been documented in the HPI. ROS Other: All systems not noted in ROS Statement are negative. Constitutional: Denies: fever, chills, weakness Respiratory: Denies: cough, dyspnea Cardiovascular: Reports: palpitations. Denies: chest pain, orthopnea, edema, syncope Gastrointestinal: Denies: abdominal pain, vomiting, diarrhea, melena, hematochezia Genitourinary: Denies: dysuria, hematuria Musculoskeletal: Denies: back pain Skin: Denies: rash Neurological: Denies: headache, weakness, numbness Past Medical History Past Medical History: Atrial Fibrillation, GERD/Reflux, Hyperlipidemia, Hypertension, Sleep Apnea/CPAP/BIPAP Additional Past Medical History / Comment(s): uses CPAP, recently in [place] w/palpitations-his Apple watch said was a-fib, had episode several years ago History of Any Multi-Drug Resistant Organisms: None Reported Past Surgical History: Cholecystectomy, Orthopedic Surgery Additional Past Surgical History / Comment(s): repair of tibial plateau fx left knee. Vasectomy. left TKR Past Anesthesia/Blood Transfusion Reactions: Motion Sickness Past Psychological History: No Psychological Hx Reported Smoking Status: Never smoker Past Alcohol Use History: None Reported Past Drug Use History: None Reported - Past Family History Mother Family Medical History: No Reported History Father Sister(s) Family Medical History: Cancer Additional Family Medical History / Comment(s): Multiple myeloma. Sister(s) Family Medical History: Cancer Additional Family Medical History / Comment(s): Breast cancer. Brother(s) Family Medical History: Cancer Additional Family Medical History / Comment(s): Prostate cancer. General Exam Limitations: no limitations General appearance: alert, in no apparent distress Head exam: Present: atraumatic, normocephalic Eye exam: Present: normal appearance. Absent: scleral icterus, conjunctival injection ENT exam: Present: normal oropharynx Neck exam: Present: normal inspection, full ROM. Absent: tenderness, meningismus Respiratory exam: Present: normal lung sounds bilaterally. Absent: respiratory distress, wheezes, rales, rhonchi, stridor, accessory muscle use Cardiovascular Exam: Present: regular rate, irregular rhythm, normal heart sounds. Absent: systolic murmur, diastolic murmur, rubs, gallop GI/Abdominal exam: Present: soft. Absent: distended, tenderness, guarding, rebound, rigid, mass Extremities exam: Present: normal inspection, normal capillary refill. Absent: pedal edema, calf tenderness Back exam: Present: normal inspection. Absent: CVA tenderness (R), CVA tenderness (L) Neurological exam: Present: alert Skin exam: Present: warm, dry, intact, normal color. Absent: rash Course Vital Signs 06/18/24 06/18/24 06/18/24 04:27 04:48 05:36 Temperature 97.8 F Pulse Rate 69 77 83 Respiratory 16 18 18 Rate Blood Pressure 151/105 143/103 144/93 O2 Sat by Pulse 94 L 98 98 Oximetry 06/18/24 06:00 Temperature 97.1 F L Pulse Rate 78 Respiratory 18 Rate Blood Pressure 138/74 O2 Sat by Pulse 95 Oximetry EKG Findings - EKG Comments: EKG Findings:: Possible old anterolateral infarct - EKG Results: EKG: interpreted by ERMD EKG shows: atrial fibrillation (Rate 82 bpm) - Blocks, [place], Hypertrophy, ST Abn: QRS axis and voltage: left axis deviation (-30 to -90), low voltage (<0.5 MV total QRS and <1.0 MV in each precordial lead) Medical Decision Making - Medical Decision Making Patient had chest x-ray that I interpreted as negative for acute infiltrate, pneumothorax, congestive heart failure - Lab Data Result diagrams: 06/18/24 04:52 06/18/24 04:52 Lab Results 06/18/24 06/18/24 06/18/24 Range/Units 04:52 04:52 04:52 WBC 9.7 (3.8-10.6) k/uL RBC 5.39 (4.30-5.90) m/uL Hgb 15.8 (13.0-17.5) gm/dL Hct 45.2 (39.0-53.0) % MCV 83.9 (80.0-100.0) fL MCH 29.3 (25.0-35.0) pg MCHC 35.0 (31.0-37.0) g/dL RDW 14.0 (11.5-15.5) % Plt Count 200 (150-450) k/uL MPV 7.7 Neutrophils % 56 % Lymphocytes % 34 % Monocytes % 5 % Eosinophils % 3 % Basophils % 1 % Neutrophils # 5.4 (1.3-7.7) k/uL Lymphocytes # 3.3 (1.0-4.8) k/uL Monocytes # 0.5 (0-1.0) k/uL Eosinophils # 0.3 (0-0.7) k/uL Basophils # 0.1 (0-0.2) k/uL PT 11.0 (10.0-12.5) sec INR 1.0 (<1.2) APTT 25.0 (22.0-30.0) sec Sodium 135 L (137-145) mmol/L Potassium 3.8 (3.5-5.1) mmol/L Chloride 102 (98-107) mmol/L Carbon Dioxide 24 (22-30) mmol/L Anion Gap 9 mmol/L BUN 15 (9-20) mg/dL Creatinine 0.87 (0.66-1.25) mg/dL Est GFR (CKD-EPI)AfAm >90 (>60 ml/min/1.73 sqM) Est GFR (CKD-EPI)NonAf 90 (>60 ml/min/1.73 sqM) Glucose 123 H (74-99) mg/dL Calcium 9.1 (8.4-10.2) mg/dL Magnesium 1.8 (1.6-2.3) mg/dL Total Bilirubin 0.6 (0.2-1.3) mg/dL AST 28 (17-59) U/L ALT 28 (4-49) U/L Alkaline Phosphatase 80 (38-126) U/L Troponin I (0.000-0.034) ng/mL Total Protein 6.7 (6.3-8.2) g/dL Albumin 4.0 (3.5-5.0) g/dL 06/18/24 Range/Units 04:52 WBC (3.8-10.6) k/uL RBC (4.30-5.90) m/uL Hgb (13.0-17.5) gm/dL Hct (39.0-53.0) % MCV (80.0-100.0) fL MCH (25.0-35.0) pg MCHC (31.0-37.0) g/dL RDW (11.5-15.5) % Plt Count (150-450) k/uL MPV Neutrophils % % Lymphocytes % % Monocytes % % Eosinophils % % Basophils % % Neutrophils # (1.3-7.7) k/uL Lymphocytes # (1.0-4.8) k/uL Monocytes # (0-1.0) k/uL Eosinophils # (0-0.7) k/uL Basophils # (0-0.2) k/uL PT (10.0-12.5) sec INR (<1.2) APTT (22.0-30.0) sec Sodium (137-145) mmol/L Potassium (3.5-5.1) mmol/L Chloride (98-107) mmol/L Carbon Dioxide (22-30) mmol/L Anion Gap mmol/L BUN (9-20) mg/dL Creatinine (0.66-1.25) mg/dL Est GFR (CKD-EPI)AfAm (>60 ml/min/1.73 sqM) Est GFR (CKD-EPI)NonAf (>60 ml/min/1.73 sqM) Glucose (74-99) mg/dL Calcium (8.4-10.2) mg/dL Magnesium (1.6-2.3) mg/dL Total Bilirubin (0.2-1.3) mg/dL AST (17-59) U/L ALT (4-49) U/L Alkaline Phosphatase (38-126) U/L Troponin I <0.012 (0.000-0.034) ng/mL Total Protein (6.3-8.2) g/dL Albumin (3.5-5.0) g/dL Disposition Clinical Impression: Atrial fibrillation Disposition: HOME SELF-CARE Condition: Good Instructions (If sedation given, give patient instructions): A-fib (Atrial Fibrillation) (ED) Is patient prescribed a controlled substance at d/c from ED?: No Referrals: El Jennings MD [Primary Care Provider] - 1-2 days Hunter Michel MD [STAFF PHYSICIAN] - 1-2 days
[2024-06-18] MEDS: FLECAINIDE 50 MG TAB PO STA (05:58)
[2024-06-18 06:02] VITALS: TEMP 97.1
[2024-06-18 06:47] VITALS: BP 130/74; PULSE 83
== END 2024-06-18 06:47 | disposition home or self-care (01) ==
LOC: EC 04:20
CPT/HCPCS: 36415; 71046; 80053; 83735; 84484; 85025; 85610; 85730; 93005; 99285

== ENCOUNTER → 2024-09-12 | Outpatient (CLI) | payer MEDICARE ==
[2024-09-12 15:07] LABS: Blood Urea Nitrogen 11.2 mg/dL (9.0-27.0); Chloride 100 mmol/L (96-109); Potassium 3.9 mmol/L (3.5-5.5); Sodium 139 mmol/L (135-145)
[2024-09-12 15:36] LABS: Basophils # (A) 0.04 X 10*3/uL (0.00-0.10); Basophils % (A) 0.5 %; Eosinophils # (A) 0.17 X 10*3/uL (0.04-0.35); Eosinophils % (A) 2.1 %; HCT 45.9 % (39.6-50.0); HGB 15.2 g/dL (13.0-17.0); Lymphocytes # (A) 2.29 X 10*3/uL (0.90-5.00); MCHC 33.1 g/dL (32.0-37.0); MCV 84.7 FL (80.0-97.0); Mean Platelet Volume 10.2 FL (9.5-12.2); Monocytes # (A) 0.64 X 10*3/uL (0.20-1.00); Monocytes % (A) 8.1 %; NRBC Per 100 WBC 0 X 10*3/uL (0.00-0.01); Neutrophils # (A) 4.75 X 10*3/uL (1.80-7.70); Platelet Count 215 X 10*3/uL (140-440); RBC 5.42 X 10*6/uL (4.40-5.60); RDW 13.2 % (11.5-14.5); WBC 7.91 X 10*3/uL (4.50-10.00)
== END | disposition home or self-care (01) ==
LOC: LABPAT 10:20
PROVIDERS: ATTEND Internal Medicine Clinical Cardiac Electrophysiology
DX: I48.0 Paroxysmal atrial fibrillation (principal)
CPT/HCPCS: 80051; 82565; 84520; 85025

== ENCOUNTER 2024-09-24 09:00 | Day surgery (SDC) | payer MEDICARE ==
[2024-09-20 10:33] VITALS: BMI 43.4
[~2024-09-24 09:00] MED LIST: SODIUM CHLORIDE 0.9% 1,000 ML IV SCH
[2024-09-24] MEDS: SODIUM CHLORIDE 0.9% 1,000 ML IV ONE (10:00)
[2024-09-24] MEDS ORDERED: ONDANSETRON 4 MG/2 ML VIAL ONE (10:54)
[2024-09-24] MEDS ORDERED: PROPOFOL 10 MG/ML 20 ML VIAL IV ONE (10:54)
[2024-09-24] MEDS ORDERED: SUCCINYLCHOLINE CHLORIDE 200 MG/10 ML VIAL IV ONE (10:54)
[2024-09-24] MEDS ORDERED: DEXAMETHASONE SOD PHOSPHATE 4 MG/ML 1 ML VIAL ONE (10:54)
[2024-09-24] MEDS ORDERED: PHENYLEPHRINE 10 MG/ML VIAL ONE (10:54)
[2024-09-24] MEDS ORDERED: fentaNYL (PF) 50 MCG/ML 2 ML AMP ONE (10:54)
[2024-09-24] MEDS ORDERED: LIDOCAINE 1% INJ 10MG/ML (20 ML MDV) ONE (10:54)
[2024-09-24] MEDS ORDERED: HEPARIN SODIUM,PORCINE 10,000 UNIT/ML 1 ML VIAL ONE (10:54)
[2024-09-24] MEDS ORDERED: KETAMINE HCL IN 0.9 % NACL 50 MG/5 ML SYRINGE ONE (10:54)
[2024-09-24] MEDS ORDERED: ISOPROTERENOL 250 MCG/1.25 ML SYR IV ONE (10:54)
[2024-09-24] MEDS: HEPARIN SODIUM,PORCINE (1 ML) 2,500 UNIT in SODIUM CHLORIDE 0.9% 250 ML IRRIGATION ONE (11:02)
[2024-09-24] MEDS: HEPARIN SODIUM,PORCINE 10,000 UNIT in SODIUM CHLORIDE 0.9% 1,000 ML IRRIGATION ONE (11:02)
[2024-09-24] MEDS: HEPARIN SOD,PORK IN 0.45% NACL 25,000 UNIT in 0.45% NACL 1 250ML.BAG IV ONE (11:03)
[2024-09-24] MEDS: LIDOCAINE 1% INJ 10MG/ML (20 ML MDV) SQ ONE (11:52)
[2024-09-24] MEDS: IOPAMIDOL-370 100ML BTL INJ ONE (13:55)
--- NOTE | 2024-09-24 14:32 | P.HPCAR ---
History of Present Illness This is Dr. Michel dictating an H/P on this patient The patient was interviewed and examined IMPRESSION / ASSESSMENT: Paroxysmal atrial fibrillation Mild CAD Mildly enlarged aortic root of 4.1 cm Hypertension Obstructive sleep apnea Left ventricular hypertrophy Preserved LV systolic function Stable from a cardiovascular standpoint to proceed with general anesthesia PLAN: Patient took Xarelto last evening. 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 Denies any chest discomfort syncope anginal-like symptoms He also has mild CAD hypertension obstructive sleep apnea, left ventricular hypertrophy with preserved systolic function ROS: No fever chills or rigors, no cough, phlegm or expectoration, no nausea, vomiting or diarrhea, no hematuria, dysuria, no musculoskeletal complaints, no strokes or seizures, no skin lesions. EXAMINATION: Afebrile 98.5 F, respirations 14, blood pressure 145/75 mmHg No JVD No lower extremity edema Normal heart sounds Increased BMI Clear lungs no rhonchi no crackles REVIEW OF LABS, ECG & MEDICAL DATA TSH normal at 3.0 Physical Exam Vitals: Vital Signs Temp Resp BP BP 09/24/24 09:30 98.5 F 14 181/88 145/75 Intake and Output 09/23/24 09/24/24 09/24/24 22:59 06:59 14:59 Intake Total 100 Balance 100 Intake: IV 100 Past Medical History Past Medical History: Atrial Fibrillation, GERD/Reflux, Hyperlipidemia, Hypertension, Sleep Apnea/CPAP/BIPAP Additional Past Medical History / Comment(s): uses CPAP, recently in EC w/palpitations-his Apple watch said was a-fib, had episode several years ago History of Any Multi-Drug Resistant Organisms: None Reported Past Surgical History: Cholecystectomy, Orthopedic Surgery Additional Past Surgical History / Comment(s): repair of tibial plateau fx left knee. Vasectomy. left TKR Past Anesthesia/Blood Transfusion Reactions: Motion Sickness Smoking Status: Never smoker - Past Family History Mother Family Medical History: No Reported History Father Sister(s) Family Medical History: Cancer Additional Family Medical History / Comment(s): Multiple myeloma. Sister(s) Family Medical History: Cancer Additional Family Medical History / Comment(s): Breast cancer. Brother(s) Family Medical History: Cancer Additional Family Medical History / Comment(s): Prostate cancer. Physical Examination Vital Signs Temp Resp BP BP 09/24/24 09:30 98.5 F 14 181/88 145/75 Intake and Output 09/23/24 09/24/24 09/24/24 22:59 06:59 14:59 Intake Total 100 Balance 100 Intake: IV 100 Results Current Medications Generic Name Dose Route Start Last Admin Trade Name Freq PRN Reason Stop Dose Admin Sodium Chloride 1,000 mls @ 20 mls/hr 09/24/24 05:38 Saline 0.9% IV 10/24/24 05:37 .Q24H HARIKA Intake and Output 09/23/24 09/24/24 09/24/24 22:59 06:59 14:59 Intake Total 100 Balance 100 Intake: IV 100
--- NOTE | 2024-09-24 14:58 | P.EPPROC ---
- EP Procedure Note Electrophysiology Procedure Note: PROCEDURE A. fib ablation with PVI, left atrial septal ablation DIAGNOSIS Paroxysmal atrial fibrillation, symptomatic, refractory to therapy RESULT No left atrial appendage mass seen on intracardiac echo, mildly thickened pericardium without any exudative effusion Successful A. 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 Patient brought to the EP lab. General anesthesia given. Heparin administered. A city maintained above 300 seconds Both groins prepped and draped per protocol and venous sheaths placed. Esophagus intubated, circa catheter for temperature monitoring an endoscope for possible esophageal deflection. Phrenic nerve monitoring performed. Esophageal temperature monitoring performed. Esophageal deflection performed if circa catheter overlapping with the balloon or circa temperature less than 27.5C Intracardiac echocardiography performed. Pericardium evaluated. Left atrial appendage evaluated. Left atrium evaluated along with pulmonary veins Transseptal catheterization performed under fluoroscopic guidance and intracardiac echo guidance Cryoablation sheath exchanged, balloon catheter along with achieve catheter placed in the left atrium. Pulmonary veins isolated in the following sequence: Left superior pulmonary vein followed by left inferior pulmonary vein, followed by right inferior pulmonary vein and lastly right superior pulmonary vein. Phrenic nerve stimulation along with capture thresholds within the SVC and right superior pulmonary vein to identify the phrenic nerve proximity to the cryo- balloon. Pulmonary veins isolated and confirmed with entrance and exit block. Phrenic nerve integrity confirmed at the end of the procedure Ablation of the left atrial septum performed with cannulation of the superior branch of the right inferior or the inferior branch of the right superior vein to achieve ablation of the posterior septum of the left atrium. Ablation of electrograms confirmed Diagnostic catheters for the high right atrium, His bundle, coronary sinus placed. LA and RA pressures recorded LA pressure: 12/12/09 Diagnostic EP study with coronary sinus pacing and recording Baseline measurements: Sinus cycle length 116 8 ms, NC interval 146 ms, QRS 93 ms and QT 446 ms AH 61 and HV 59 ms Sinus node recovery times of 1385, 1374 and 1539 ms, all normal with normal corrected sinus node recovery times AV node Wenckebach block 460 ms Burst stimulation from the high right atrium as well as extrastimulation with single extrastimuli on high-dose Isopril Venous sheaths were removed and hemostasis assured with a closure device. Patient extubated and transferred to recovery Increase procedural time During ablation multiple attempts had to be made to move the esophagus a safe distance of the from the pulmonary vein draining cryoablation, to avoid excessive thermal cooling of the esophagus This took extra time and effort to keep the esophagus a safe distance away from the cryoablation balloon. As a result multiple short cryo ablations were delivered to the left superior and left inferior pulmonary veins in a staggered fashion to avoid lesions stacking.. The esophagus was difficult to deflect as this was an extreme left esophagus PROCEDURES PERFORMED Diagnostic EP study CS pacing and recording Left and right transseptal catheterization Catheter the mapping of the tachycardia Intracardiac echocardiography Pulmonary vein isolation with transseptal and comprehensive EPS, [id number] Extended procedure duration Drug infusion, +[id number] Linear ablation, left atrium, +[id number]
[2024-09-24] MEDS ORDERED: ACETAMINOPHEN TAB 325 MG TAB PO PRN (19:17)
[2024-09-24] MEDS: ACETAMINOPHEN IV (For NPO) 1,000 MG in EMPTY BAG 1 BAG IVPB ONE (19:56)
[2024-09-24] MEDS: RIVAROXABAN 20 MG TAB PO SCH (19:57)
[2024-09-25 01:33] VITALS: TEMP 98.3
[2024-09-25] MEDS: PANTOPRAZOLE 40 MG TABLET PO SCH (05:25)
[2024-09-25 07:38] VITALS: BP 143/90; PULSE 61
[2024-09-25] MEDS: ATORVASTATIN 40 MG TAB PO SCH (08:07)
[2024-09-25] MEDS: LISINOPRIL-HCTZ 20-25 MG 1 EACH TAB PO SCH (08:07)
--- NOTE | 2024-09-25 09:20 | P.DS ---
Providers Attending physician: Hunter Michel Primary care physician: El Jennings [facility] Course: The patient is a 69-year-old male with past medical history of atrial fibrillation and atrial tachycardia. Patient underwent pulmonary vein isolation yesterday with Dr. Barrera. Successful isolation of all 4 veins as well as left atrial septal ablation Patient interviewed and examined sitting up in recliner chair. He states he did well overnight. He denies any chest pain or pressure. No difficulty breathing or orthopnea. GENERAL: Well-appearing, well-nourished and in no acute distress. NECK: Supple without JVD or thyromegaly. LUNGS: Breath sounds clear to auscultation bilaterally. Respiration equal and unlabored. No wheezes, rales or rhonchi. HEART: Regular rate and rhythm without murmurs, rubs or gallops. S1 and S2 heard. EXTREMITIES: Normal range of motion, no edema. No clubbing or cyanosis. Peripheral pulses intact and strong. Groin sites are clean dry and intact. IMPRESSION: Paroxysmal atrial fibrillation Status post pulmonary vein isolation PLAN: Paroxysmal atrial fibrillation no changes in medication regimen Continue anticoagulation Follow-up with Dr. Barrera in 1 week I am dictating on behalf of Dr Hunter Michel's history/physical and assessment/plan. Plan - Discharge Summary Discharge Rx Participant: No New Discharge Prescriptions: No Action Garlic 2 tab PO DAILY Pantoprazole [Protonix] 40 mg PO DAILY Multivitamins, Thera [Multivitamin (formulary)] 1 tab PO HS Lisinopril-Hctz 20-25 mg [Zestoretic 20-25] 1 tab PO DAILY Fluticasone Nasal [place] [Flonase Nasal [place]] 1 spray EA NOSTRIL DAILY Cholecalciferol [Vitamin D3 (25 Mcg = 1000 Iu)] 25 mcg PO DAILY Atorvastatin [Lipitor] 40 mg PO DAILY Cetirizine HCl [Zyrtec] 10 mg PO DAILY Rivaroxaban [Xarelto] 20 mg PO HS Discharge Medication List Garlic 2 tab PO DAILY 08/26/14 [History] Pantoprazole [Protonix] 40 mg PO DAILY 12/05/16 [History] Multivitamins, Thera [Multivitamin (formulary)] 1 tab PO HS 03/25/19 [History] Atorvastatin [Lipitor] 40 mg PO DAILY 06/25/21 [History] Lisinopril-Hctz 20-25 mg [Zestoretic 20-25] 1 tab PO DAILY 02/19/21 [History] Cetirizine HCl [Zyrtec] 10 mg PO DAILY 08/02/22 [History] Cholecalciferol [Vitamin D3 (25 Mcg = 1000 Iu)] 25 mcg PO DAILY 08/02/22 [History] Fluticasone Nasal [place] [Flonase Nasal [place]] 1 spray EA NOSTRIL DAILY 08/02/22 [History] Rivaroxaban [Xarelto] 20 mg PO HS 09/20/24 [History]
[2024-09-25 10:02] VITALS: RESP 16
== END 2024-09-25 12:45 | disposition home or self-care (01) ==
LOC: CATHEP 09:00 → 6NMEDSUR 13:50 → CATHEP 09-25 12:45
PROVIDERS: ATTEND Internal Medicine Clinical Cardiac Electrophysiology
DX: I25.10 Atherosclerotic heart disease of native coronary artery without angina pectoris (principal); I48.0 Paroxysmal atrial fibrillation; G47.33 Obstructive sleep apnea (adult) (pediatric); E78.5 Hyperlipidemia, unspecified; K21.9 Gastro-esophageal reflux disease without esophagitis; Z90.49 Acquired absence of other specified parts of digestive tract; Z80.3 Family history of malignant neoplasm of breast; Z99.89 Dependence on other enabling machines and devices; Z88.5 Allergy status to narcotic agent; Z88.9 Allergy status to unspecified drugs, medicaments and biological substances; Z79.01 Long term (current) use of anticoagulants; Z79.899 Other long term (current) drug therapy
CPT/HCPCS: 93623; 93656; 93657; 86900; 86901; 84443; 86850; C1894; C1769; C1760 ×3; C1730 ×2; C1759; C1733; C1766; J0330; J1644 ×3; J1100; J2405; J2003; J3010; J0131; J2704; Q9967; J2371

== ENCOUNTER 2024-12-30 13:24 | Emergency (ER) | payer MEDICARE ==
[2024-12-30 13:31] VITALS: RESP 18
[2024-12-30 14:46] LABS: Basophils # (A) 0.04 10*3/uL (0.00-0.10); Basophils % (A) 0.4 %; Eosinophils # (A) 0.37 10*3/uL (0.04-0.35); Eosinophils % (A) 3.6 %; HCT 44.6 % (39.6-50.0); HGB 15.7 g/dL (13.0-17.0); Lymphocytes # (A) 2.49 10*3/uL (0.90-5.00); Lymphocytes % (A) 24.5 %; MCH 28.8 pg (27.0-32.0); MCHC 35.2 g/dL (32.0-37.0); MCV 81.8 fL (80.0-97.0); Mean Platelet Volume 9.7 fL (9.5-12.2); Monocytes # (A) 0.78 10*3/uL (0.20-1.00); Monocytes % (A) 7.7 %; Neutrophils # (A) 6.46 10*3/uL (1.80-7.70); Neutrophils % (A) 63.6 %; Platelet Count 223 10*3/uL (140-440); RBC 5.45 10*6/uL (4.40-5.60); RDW 13.5 % (11.5-14.5); WBC 10.16 10*3/uL (4.50-10.00)
[2024-12-30 14:48] LABS: Appearance,Urine Clear (Clear); Bilirubin,Urine Negative (Negative); Blood,Urine Negative (Negative); Color,Urine Yellow; Glucose,Urine (UA) Negative (Negative); Ketones,Urine Negative (Negative); Leukocyte Esterase,Urine Trace (Negative); Mucus,Urine Occasional /hpf; Nitrite,Urine Negative (Negative); PH, Urine 6.5 (5.0-8.0); Protein,Urine Negative (Negative); RBC,Urine <1 /hpf (0-5); Specific Gravity,Urine 1.015 (1.001-1.035); Squamous Epithelial Cell,Urine <1 /hpf (0-4); Urobilinogen,Urine <2.0 mg/dL (<2.0); WBC,Urine 1 /hpf (0-5)
[2024-12-30 14:56] LABS: Partial Thromboplastin Time 24.2 sec (22.0-30.0); Prothrombin Time 11.2 sec (10.0-12.5)
[2024-12-30 15:03] LABS: ALT 29 U/L (4-49); AST 23 U/L (17-59); African American GFR (CKD) >90 (>60 ml/min/1.73 sqM); Albumin 4.1 g/dL (3.5-5.0); Alkaline Phosphatase 68 U/L (38-126); Amylase 37 U/L (30-110); Anion Gap 11 mmol/L; Blood Urea Nitrogen 11 mg/dL (9-20); Calcium 9.2 mg/dL (8.4-10.2); Carbon Dioxide 27 mmol/L (22-30); Chloride 98 mmol/L (98-107); Glucose 98 mg/dL (74-99); Lipase 61 U/L (23-300); Non-African American GFR(CKD) 89 (>60 ml/min/1.73 sqM); Potassium 3.3 mmol/L (3.5-5.1); Sodium 136 mmol/L (137-145); Total Protein 6.9 g/dL (6.3-8.2)
[2024-12-30] MEDS: SODIUM CHLORIDE 0.9% 1,000 ML IV ONE (15:07)
[2024-12-30] MEDS: KETOROLAC 15 MG/ML 1 ML VIAL IVP STA (15:08)
[2024-12-30] MEDS: ONDANSETRON 4 MG/2 ML VIAL IVP STA (15:09)
[2024-12-30 15:21] LABS: Influenza A Not Detected (Not Detectd); Influenza B Not Detected (Not Detectd); RSV Not Detected (Not Detectd)
--- NOTE | 2024-12-30 16:12 | ED ---
General Adult HPI - General Chief complaint: Nausea/Vomiting/Diarrhea Stated complaint: Diarrhea Time Seen by Provider: 12/30/24 14:20 Source: patient, RN notes reviewed, old records reviewed Mode of arrival: ambulatory Limitations: no limitations - History of Present Illness Initial comments: Patient is a 69-year-old male presents emergency department complaining of lower abdominal pain with diarrhea. History of diverticulitis. Been ongoing for numerous days. No other family members have similar symptoms. Has a history of A-fib on thinners, hypertension, hyperlipidemia, diverticulitis. States he is concerned it is diverticulitis. Denies any blood in his stool. States it is loose but not pure liquid. Denies any urine complaints. Denies any nausea or vomiting. Presents for further evaluation at this time. - Related Data Home Medications Medication Instructions Recorded Confirmed Garlic 2 tab PO DAILY 08/26/14 09/20/24 Pantoprazole [Protonix] 40 mg PO DAILY 12/05/16 09/24/24 Multivitamins, Thera [Multivitamin 1 tab PO HS 03/25/19 09/20/24 (formulary)] Atorvastatin [Lipitor] 40 mg PO DAILY 02/19/21 09/24/24 Lisinopril-Hctz 20-25 mg 1 tab PO DAILY 02/19/21 09/24/24 [Zestoretic 20-25] Cetirizine HCl [Zyrtec] 10 mg PO DAILY 08/02/22 09/20/24 Cholecalciferol [Vitamin D3 (25 25 mcg PO DAILY 08/02/22 09/20/24 Mcg = 1000 Iu)] Fluticasone Nasal [place] [Flonase 1 spray EA NOSTRIL DAILY 08/02/22 09/20/24 Nasal [place]] Rivaroxaban [Xarelto] 20 mg PO HS 09/20/24 09/24/24 Previous Rx's Medication Instructions Recorded Dicyclomine [Bentyl] 10 mg PO TID PRN 7 Days #21 capsule 12/30/24 Allergies Allergy/AdvReac Type Severity Reaction Status Date / Time diphenhydramine HCl Allergy "Seizure Verified 12/30/24 13:31 [From Benadryl] like activity" hydrocodone Allergy Nausea Verified 12/30/24 13:31 clemastine fumarate AdvReac Confusion Verified 12/30/24 13:31 [From Tavist] pseudoephedrine HCl AdvReac Confusion Verified 12/30/24 13:31 [From Tavist] Review of Systems ROS Statement: Those systems with pertinent positive or pertinent negative responses have been documented in the HPI. Review of Systems: CONST: Denies fever EYES: Denies blurry vision ENT: Denies nasal congestion C/V: Denies Chest pain RESP: Denies shortness of breath GI: Endorses abdominal pain : Denies dysuria SKIN: Denies rash. MSK: Denies joint pain. NEURO: Denies headache ROS Other: All systems not noted in ROS Statement are negative. Past Medical History Past Medical History: Atrial Fibrillation, GERD/Reflux, Hyperlipidemia, Hyperten namrata, Sleep Apnea/CPAP/BIPAP Additional Past Medical History / Comment(s): uses CPAP, recently in EC w/palpitations-his Apple watch said was a-fib, had episode several years ago History of Any Multi-Drug Resistant Organisms: None Reported Past Surgical History: Ablation, Cholecystectomy, Orthopedic Surgery Additional Past Surgical History / Comment(s): repair of tibial plateau fx left knee. Vasectomy. left TKR Past Anesthesia/Blood Transfusion Reactions: Motion Sickness Past Psychological History: No Psychological Hx Reported Smoking Status: Never smoker Past Alcohol Use History: None Reported Past Drug Use History: None Reported - Past Family History Mother Family Medical History: No Reported History Father Sister(s) Family Medical History: Cancer Additional Family Medical History / Comment(s): Multiple myeloma. Sister(s) Family Medical History: Cancer Additional Family Medical History / Comment(s): Breast cancer. Brother(s) Family Medical History: Cancer Additional Family Medical History / Comment(s): Prostate cancer. General Exam - General Exam Comments Initial Comments: General: Appears in no acute distress. HEAD: Normal with no signs of head trauma. EYES: EOMI ENT: Hearing grossly intact, normal oropharynx. RESPIRATORY: Clear breath sounds bilaterally. No wheezes, rales, or rhonchi. C/V: Regular rate and rhythm. S1 and S2 auscultated, peripheral pulses 2+ and intact throughout ABD: Abdomen soft, nondistended. Tender to palpation in bilateral lower quadrant. No guarding or rebound tenderness. EXT: No obvious deformity. SKIN: No rashes or lesions observed on exposed skin. NEURO: Alert and oriented x 4. Limitations: no limitations Course Vital Signs 12/30/24 12/30/24 13:27 16:28 Temperature 98.0 F Pulse Rate 74 60 Respiratory 18 18 Rate Blood Pressure 118/79 114/76 O2 Sat by Pulse 96 94 L Oximetry Medical Decision Making - Medical Decision Making Was pt. sent in by a medical professional or institution (, [facility], [facility], urgent care, hospital, or custodial...) When possible be specific @ -No Did you speak to anyone other than the patient for history (EMS, parent, family, police, friend...)? What history was obtained from this source @ -No Did you review nursing and triage notes (agree or disagree)? Why? @ -I reviewed and agree with nursing and triage notes Were old charts reviewed (outside hosp., previous admission, EMS record, old EKG, old radiological studies, urgent care reports/EKG's, custodial records)? Report findings @ -No old charts were reviewed Differential Diagnosis (chest pain, altered mental status, abdominal pain women, abdominal pain men, vaginal bleeding, weakness, fever, dyspnea, syncope, headache, dizziness, GI bleed, back pain, seizure, CVA, palpatations, mental health, musculoskeletal)? @ -Differential Abdominal Pain Men: Appendicitis, cholecystitis, diverticulosis, ischemic bowel, pancreatitis, hepatitis, UTI, gastroenteritis, AAA, incarcerated hernia, bowel obstruction, constipation, inflammatory bowel, hepatitis, peptic ulcer disease, splenic infarction, perforated viscus, testicular torsion, this is not meant to be an all-inclusive list EKG interpreted by me (3pts min.). @ -None done X-rays interpreted by me (1pt min.). @ -None done CT interpreted by me (1pt min.). @ -CT abdomen pelvis negative for any obvious acute process. U/S interpreted by me (1pt. min.). @ -None done What testing was considered but not performed or refused? (CT, X-rays, U/S, labs)? Why? @ -None What meds were considered but not given or refused? Why? @ -None Did you discuss the management of the patient with other professionals (professionals i.e. , [facility], [facility], lab, RT, psych nurse, social scientist, intellectual property lawyer, teacher, national service officer, human services case manager)? Give summary @ -No Was smoking cessation discussed for >3mins.? @ -No Was critical care preformed (if so, how long)? @ -No Were there social determinants of health that impacted care today? How? (Homelessness, low income, unemployed, alcoholism, drug addiction, transp ortation, low edu. Level, literacy, decrease access to med. care, shelter, rehab)? @ -No Was there de-escalation of care discussed even if they declined (Discuss DNR or withdrawal of care, Hospice)? DNR status @ -No What co-morbidities impacted this encounter? (DM, HTN, Smoking, COPD, CAD, Cancer, CVA, ARF, Chemo, Hep., AIDS, mental health diagnosis, sleep apnea, morbid obesity)? @ -None Was patient admitted / discharged? Hospital course, mention meds given and route, prescriptions, significant lab abnormalities, going to OR and other pertinent info. @ -Patient with patient's presentation and physical exam, presents with lower quadrant abdominal pain with diarrhea. Concern for diverticulitis. Will obtain abdominal labs as well as CT imaging. Patient was in agreement this plan. Given IV fluids, Toradol, Zofran. Vitals within acceptable limits. Laboratory studies are all within acceptable except for mild white cell count of 10. Potassium is slightly low at 3.3 and this was supplemented. CT abdomen pelvis negative for any obvious acute process. After the patient. He will be discharged home at this time. Discussed that he could have viral colitis. No obvious acute finding on workup today. No antibiotics indicated. He will be given a prescription for Bentyl. Recommend follow-up with PCP. He was in agreement this plan. I will provide the patient with a prescription for Bentyl. I instructed the patient to follow up with their PCP in the next 1-3 days.. I explained that the patient should return to the emergency department if they experience any worsening symptoms. Strict return precautions were discussed with the patient. The patient expressed understanding of these instructions. I answered all questions that the patient had. The patient was discharged home in good condition with their prescriptions and follow up information. Undiagnosed new problem with uncertain prognosis? @ -No Drug Therapy requiring intensive monitoring for toxicity (Heparin, Nitro, Insulin, Cardizem)? @ -No Were any procedures done? @ -No Diagnosis/symptom? @ -Hypokalemia, acute abdominal pain of unknown etiology, diarrhea Acute, or Chronic, or Acute on Chronic? @ -Acute Uncomplicated (without systemic symptoms) or Complicated (systemic symptoms)? @ -uncomplicated Side effects of treatment? @ -None Exacerbation, Progression, or Severe Exacerbation] @ -No Poses a threat to life or bodily function? @ -Potentially, yes - Lab Data Result diagrams: 12/30/24 14:36 12/30/24 14:36 Lab Results 12/30/24 12/30/24 12/30/24 Range/Units 14:36 14:36 14:36 WBC 10.16 H (4.50-10.00) 10*3/uL RBC 5.45 (4.40-5.60) 10*6/uL Hgb 15.7 (13.0-17.0) g/dL Hct 44.6 (39.6-50.0) % MCV 81.8 (80.0-97.0) fL MCH 28.8 (27.0-32.0) pg MCHC 35.2 (32.0-37.0) g/dL Plt Count 223 (140-440) 10*3/uL MPV 9.7 (9.5-12.2) fL Immature Gran % (Auto) 0.2 % Neutrophils % 63.6 % Lymphocytes % 24.5 % Monocytes % 7.7 % Eosinophils % 3.6 % Basophils % 0.4 % Immature Gran # 0.02 (0.00-0.04) 10*3/uL Neutrophils # 6.46 (1.80-7.70) 10*3/uL Lymphocytes # 2.49 (0.90-5.00) 10*3/uL Monocytes # 0.78 (0.20-1.00) 10*3/uL Eosinophils # 0.37 H (0.04-0.35) 10*3/uL Basophils # 0.04 (0.00-0.10) 10*3/uL PT 11.2 (10.0-12.5) sec INR 1.0 (<1.2) APTT 24.2 (22.0-30.0) sec Sodium 136 L (137-145) mmol/L Potassium 3.3 L (3.5-5.1) mmol/L Chloride 98 (98-107) mmol/L Carbon Dioxide 27 (22-30) mmol/L Anion Gap 11 mmol/L BUN 11 (9-20) mg/dL Creatinine 0.89 (0.66-1.25) mg/dL Est GFR (CKD-EPI)AfAm >90 (>60 ml/min/1.73 sqM) Est GFR (CKD-EPI)NonAf 89 (>60 ml/min/1.73 sqM) Glucose 98 (74-99) mg/dL Plasma Lactic Acid Elder (0.7-2.0) mmol/L Calcium 9.2 (8.4-10.2) mg/dL Total Bilirubin 1.0 (0.2-1.3) mg/dL AST 23 (17-59) U/L ALT 29 (4-49) U/L Alkaline Phosphatase 68 (38-126) U/L Total Protein 6.9 (6.3-8.2) g/dL Albumin 4.1 (3.5-5.0) g/dL Amylase 37 (30-110) U/L Lipase 61 (23-300) U/L Urine Color Urine Appearance (Clear) Urine pH (5.0-8.0) Ur Specific [place] (1.001-1.035) Urine Protein (Negative) Urine Glucose (UA) (Negative) Urine Ketones (Negative) Urine Blood (Negative) Urine Nitrite (Negative) Urine Bilirubin (Negative) Urine Urobilinogen (<2.0) mg/dL Ur Leukocyte Esterase (Negative) Urine RBC (0-5) /hpf Urine WBC (0-5) /hpf Ur Squamous Epith Cells (0-4) /hpf Urine Mucus (None) /hpf Influenza Type A (PCR) (Not Detectd) Influenza Type B (PCR) (Not Detectd) RSV (PCR) (Not Detectd) SARS-CoV-2 (PCR) (Not Detectd) 12/30/24 12/30/24 12/30/24 Range/Units 14:36 14:39 14:39 WBC (4.50-10.00) 10*3/uL RBC (4.40-5.60) 10*6/uL Hgb (13.0-17.0) g/dL Hct (39.6-50.0) % MCV (80.0-97.0) fL MCH (27.0-32.0) pg MCHC (32.0-37.0) g/dL Plt Count (140-440) 10*3/uL MPV (9.5-12.2) fL Immature Gran % (Auto) % Neutrophils % % Lymphocytes % % Monocytes % % Eosinophils % % Basophils % % Immature Gran # (0.00-0.04) 10*3/uL Neutrophils # (1.80-7.70) 10*3/uL Lymphocytes # (0.90-5.00) 10*3/uL Monocytes # (0.20-1.00) 10*3/uL Eosinophils # (0.04-0.35) 10*3/uL Basophils # (0.00-0.10) 10*3/uL PT (10.0-12.5) sec INR (<1.2) APTT (22.0-30.0) sec Sodium (137-145) mmol/L Potassium (3.5-5.1) mmol/L Chloride (98-107) mmol/L Carbon Dioxide (22-30) mmol/L Anion Gap mmol/L BUN (9-20) mg/dL Creatinine (0.66-1.25) mg/dL Est GFR (CKD-EPI)AfAm (>60 ml/min/1.73 sqM) Est GFR (CKD-EPI)NonAf (>60 ml/min/1.73 sqM) Glucose (74-99) mg/dL Plasma Lactic Acid [place] 1.1 (0.7-2.0) mmol/L Calcium (8.4-10.2) mg/dL Total Bilirubin (0.2-1.3) mg/dL AST (17-59) U/L ALT (4-49) U/L Alkaline Phosphatase (38-126) U/L Total Protein (6.3-8.2) g/dL Albumin (3.5-5.0) g/dL Amylase (30-110) U/L Lipase (23-300) U/L Urine Color Yellow Urine Appearance Clear (Clear) Urine pH 6.5 (5.0-8.0) Ur Specific [place] 1.015 (1.001-1.035) Urine Protein Negative (Negative) Urine Glucose (UA) Negative (Negative) Urine Ketones Negative (Negative) Urine Blood Negative (Negative) Urine Nitrite Negative (Negative) Urine Bilirubin Negative (Negative) Urine Urobilinogen <2.0 (<2.0) mg/dL Ur Leukocyte Esterase Trace H (Negative) Urine RBC <1 (0-5) /hpf Urine WBC 1 (0-5) /hpf Ur Squamous Epith Cells <1 (0-4) /hpf Urine Mucus Occasional H (None) /hpf Influenza Type A (PCR) Not Detected (Not Detectd) Influenza Type B (PCR) Not Detected (Not Detectd) RSV (PCR) Not Detected (Not Detectd) SARS-CoV-2 (PCR) Not Detected (Not Detectd) Disposition Clinical Impression: Abdominal pain of unknown etiology, Hypokalemia, Diarrhea Disposition: HOME SELF-CARE Condition: Good Instructions (If sedation given, give patient instructions): Acute Diarrhea (ED) Prescriptions: Dicyclomine [Bentyl] 10 mg PO TID PRN 7 Days #21 capsule PRN Reason: Pain Is patient prescribed a controlled substance at d/c from ED?: No Referrals: El Jennings MD [Primary Care Provider] - 1-2 days Time of Disposition: 16:30
--- NOTE | 2024-12-30 16:19 | CT ---
EXAMINATION TYPE: CT abdomen pelvis w con DATE OF EXAM: 12/30/2024 3:47 PM COMPARISON: None. CLINICAL INDICATION: Male, 69 years old with history of abdominal pain, diarrhea, abdominal pain, jakob rrhea hx of diverticulitis. TECHNIQUE: Axial images were obtained from above the diaphragm to the pubic rami in the axial plane a t 5 mm thick sections. Reconstructed images are reviewed on the computer in the coronal plane. CONTRAST: 100 ml mL of Isovue 300. Study performed without Oral Contrast DLP: 3152.4 mGycm, Automated exposure control for dose reduction was used. FINDINGS: Limited CT sections are obtained the lung bases. The lung bases are clear. CT ABDOMEN: There appears to be a stomach diverticulum at the fundus with a small air-fluid level adj acent to the left adrenal gland Liver: There is mild fatty infiltration of the liver. There is a 0.8 cm cyst in the right inferior lo be liver Spleen: Normal Pancreas: Fatty infiltration is present Adrenal glands: The adrenal glands are normal. Gallbladder: Normal Kidneys: No masses are evident. No hydronephrosis is present. There is a 3.2 cm cyst measuring 14 H [place]unsfield units anterior mid right kidney. There is a 4.8 cm cyst measuring 14 Hounsfield units infer ior pole right kidney. Delayed images were obtained through the kidneys, which remain unremarkable. Aorta: Vascular calcification is within the aorta. Inferior vena cava: Normal. CT PELVIS: Left inguinal hernia containing mesenteric fat is present. Loops of bowel within the abdomen and pelvis are normal. There are loops of bowel which are incom pletely distended or lack oral contrast limiting their evaluation. Appendix: Normal as visualized. Urinary bladder: Normal. Genitourinary structures: Prostate is prominent Osseous structures: No suspicious lytic or sclerotic lesions. Degenerative disc changes are present L 5-S1. Some minimal retrolisthesis may be present. IMPRESSION: 1. Fundal stomach diverticulum. 2. Left inguinal mesenteric fat containing hernia. 3. Simple right renal cysts. 4. Hepatic and pancreatic fatty infiltration [facility], Workstation: [facility], 12/30/2024 4:17 PM
[2024-12-30] MEDS: POTASSIUM CHLORIDE ER 20 MEQ TAB.ER PO STA (16:26)
[2024-12-30 16:29] VITALS: BP 114/76; PULSE 60
[2024-12-30 17:00] VITALS: TEMP 98.1
== END 2024-12-30 16:59 | disposition home or self-care (01) ==
LOC: EC 13:24
DX: R10.31 Right lower quadrant pain (principal); R10.32 Left lower quadrant pain; E87.6 Hypokalemia; R19.7 Diarrhea, unspecified; I48.91 Unspecified atrial fibrillation; E78.5 Hyperlipidemia, unspecified; Z88.5 Allergy status to narcotic agent; Z88.8 Allergy status to other drugs, medicaments and biological substances
CPT/HCPCS: 36415; 80053; 82150; 83605; 83690; 85025; 85610; 85730; 81001; 87636; 74177; 99284; 96374; 96375; 96361; J2405; J1885; Q9967